=== PATIENT | female | born 1980 | race Caucasian/White ===

== ENCOUNTER 2019-05-07 19:01 | Emergency (ER) | payer OTHER ==
[2019-05-07 19:07] VITALS: BP 158/84; PULSE 78; RESP 18; TEMP 98.8
[2019-05-07] MEDS ORDERED: AMOXIC-POT CLAV 875MG STARTER 2 EACH TABLET PO STA (19:18)
[2019-05-07] MEDS ORDERED: KETOROLAC 60 MG/2 ML VIAL IM STA (19:19)
--- NOTE | 2019-05-07 19:20 | ED ---
General Adult HPI - General Chief complaint: Headache Stated complaint: Sinus infection Time Seen by Provider: 05/07/19 19:09 Source: patient Mode of arrival: ambulatory Limitations: no limitations - History of Present Illness Initial comments: 38 female presenting for facial pain 3-4 days, on-and-off headache symptomatic express for evaluation in ER. Patient states that she was sent from [facility] because she was stating when describing her sinus pressure on-and-off headache that she had some slight confusion today she states it was more of a fall with she states that she had no difficulty with speech, numbness tingling of the upper or lower extremitie, denies visual changes, seizure activity, neck pain, sudden onset of WASHBURN, worse WASHBURN of her life. Patient states she simply went there because she had what she felt a sinus infection. She states she was recently treated for an ear infection there are 2 weeks prior and has had upper respiratory symptoms are greater than 10 days. Patient denies any chest pain shortness of breath she states she has a mild cough. Denies fever. Patient states facial pressure increases wtih downward head movement or touching of the cheeks near nose. Patient states that she was told she had to come to the emergency department, and patient state she felt like if she didnt come her insurance would not pay for her med express visit. Patient denies , denies any other complaints. Upon arrival patient is very well appearing, no sign of distress. - Related Data Previous Rx's Medication Instructions Recorded Azithromycin [Zithromax Z-pack] 0 mg PO DIRECTED #1 pack 05/13/17 Amoxicillin/Potassium Clav 1 tab PO Q12HR 10 Days #20 tab 05/07/19 [Augmentin 875-125 Tablet] Fluconazole [Diflucan] 150 mg PO ONCE PRN 1 Days #1 tab 05/07/19 Allergies Allergy/AdvReac Type Severity Reaction Status Date / Time sulfamethoxazole Allergy Rash/Hives Verified 05/07/19 19:07 [From Bactrim] Review of Systems ROS Statement: Those systems with pertinent positive or pertinent negative responses have been documented in the HPI. ROS Other: All systems not noted in ROS Statement are negative. Past Medical History Past Medical History: Asthma, Deep Vein Thrombosis (DVT), GERD/Reflux, Musculoskeletal Disorder Additional Past Medical History / Comment(s): pinched nerve right leg currently, hx DVT right leg w/last History of Any Multi-Drug Resistant Organisms: None Reported Past Surgical History: Appendectomy, Section, Cholecystectomy, Orthopedic Surgery Additional Past Surgical History / Comment(s): arthroscopy bilat knees 2009, cholecyst 2002, appy 1987, c/s x 2 2000 and 2005 Past Anesthesia/Blood Transfusion Reactions: No Reported Reaction Past Psychological History: Anxiety Smoking Status: Current some day smoker Past Alcohol Use History: Occasional Past Drug Use History: None Reported - Past Family History Mother Family Medical History: CVA/TIA General Exam - General Exam Comments Initial Comments: General: The patient is awake and alert, in no distress, and does not appear acutely ill. Eye: +3 mm pupils are equal, round and reactive to light, extra-ocular movements are intact. No nystagmus. There is normal conjunctiva bilaterally. No signs of icterus. No photophobia Ears, nose, mouth and throat: There are moist mucous membranes and no oral lesions. Oropharynx was not erythematous there is no tonsillar enlargement exudates or lesions. Uvula midline. Tympanic membranes are not erythematous or is no effusions bulging or retraction. No tenderness to palpation of the mastoid. left EAC cerumen. No anterior cervical lymphadenopathy. Rhinorrhea, clear and bilateral nares. No tripoding, no drooling. Tenderness to palpation to the maxillary sinuses b/l. Neck: The neck is supple, there is no tenderness or JVD. No nuchal rigidity Cardiovascular: There is a regular rate and rhythm. No murmur, rub or gallop is appreciated. Respiratory: Lungs are clear to auscultation, respirations are non-labored, breath sounds are equal. No wheezes, stridor, rales, or rhonchi. No r etractions or abdominal breathing. Musculoskeletal: Normal ROM, no tenderness. Strength 5/5. Sensation intact. Radial pulses equal bilaterally 2+. Neurological: A&O x 3. CN II-XII intact, memory intact to immediately, intermediate and snf recall. Able to follow simple verbal. Able to name a common object (pen). High quality, labial (pa) and lingual (la) speech. Low quality posterior pharynx/larynx (ga) voice sounds. Able to express general knowledge (days in a week). No hemineglect or inattention noted. Finger agnosia (-) and spatially oriented (identified L index finger touched R shoulder with L index finger).Light touch and temperature sensation present over the face, chest, abdomen, back, UE bilaterally, and LE bilaterally. Able to localize point during point localization b/l and extinction. No visible bulk atrophy, hypertrophy, fasciculations, or myoclonus of the UE or LE b/l. Full PROM in UE and LE b/l. Bilateral muscle strength 5/5 for the following muscles: deltoid, biceps, triceps, brachioradialis, wrist extensors/flexor, hip flexor, hip abductors/adductors, hamstrings, quadriceps, feet dorsiflexors/plantar flexors. Finger to nose, finger to the examiners finger, and heel to edmonds coordinated and accurate b/l. Coordinated and even demonstration of hand flip, finger to thumb, and toe tap b/l. Gait is coordinated and even in stride with tandem, toe and heel walk. Maintains balance with monopedal stance. (-) Romberg. (-) pronator drift. No nuchal rigidity. Skin: Skin is warm and dry and no rashes or lesions are noted. No extremity edema Psychiatric: Cooperative Limitations: no limitations Course Vital Signs 05/07/19 19:04 Temperature 98.8 F Pulse Rate 78 Respiratory 18 Rate Blood Pressure 158/84 O2 Sat by Pulse 100 Oximetry Medical Decision Making - Medical Decision Making Very well-appearing 38yo female presenting for sinus pressure on and off headache. Patient has no focal neurological deficits she appears well refuses imaging studies today stating she simply came for a sinus infection. Patient has had on and off upper respiratory symptoms for 10 days as well as sinus pressure and facial pain 3-4 days. At this time feel antibiotics are indicated for sinus infection. Patient denies any other complaints she appears well be discharged with Augmentin. Patient states she frequently gets yeast infections with ABX and would like a prescription for diflucan. Case discussed in detail with my attending provider who is agreeable care plan at discharge at this time. Disposition Clinical Impression: Sinusitis Disposition: HOME SELF-CARE Condition: Good Instructions (If sedation given, give patient instructions): Sinusitis (ED) Additional Instructions: Please use medication as discussed. Please follow-up with family doctor in the next 2 days. Please return to emergency room if the symptoms increase or worsen or for any other concerns. Prescriptions: Amoxicillin/Potassium Clav [Augmentin 875-125 Tablet] 1 tab PO Q12HR 10 Days #20 tab Fluconazole [Diflucan] 150 mg PO ONCE PRN 1 Days #1 tab PRN Reason: Vaginal Irritation Is patient prescribed a controlled substance at d/c from ED?: No Referrals: Thalia Aiken MD [Primary Care Provider] - 1-2 days Time of Disposition: 19:22
== END 2019-05-07 19:40 | disposition home or self-care (01) ==
LOC: EC 19:01
DX: J32.9 Chronic sinusitis, unspecified (principal); R41.0 Disorientation, unspecified; F17.200 Nicotine dependence, unspecified, uncomplicated; Z88.2 Allergy status to sulfonamides; Z53.20 Procedure and treatment not carried out because of patient's decision for unspecified reasons
CPT/HCPCS: 99283; 96372; J1885

== ENCOUNTER → 2019-07-17 | Outpatient (CLI) | payer OTHER ==
--- NOTE | 2019-07-17 09:33 | US ---
EXAMINATION TYPE: US pelvis complete transvag DATE OF EXAM: 07/17/2019 COMPARISON: NONE CLINICAL HISTORY: N192.0 menorrhagia. Abnormal periods. TECHNIQUE: Transvaginal (TV) and Transabdominal (TA) . Transabdominal sonographic images of the pel vis were acquired. Transvaginal sonographic images were medically necessary to better assess the fol lowing anatomy: Date of LMP: 07/01/2019 EXAM MEASUREMENTS: Uterus: 11.2 x 4.6 x 6.1 cm Endometrial Stripe: .9 cm Right Ovary: 2.9 x 1.8 x 2.7 cm Left Ovary: 3.3 x 1.9 x 2.6 cm 1. Uterus: Retroflexed Nabothian cysts seen. 2. Endometrium: wnl 3. Right Ovary: 2.9 x 1.8 x 2.7 cm simple cyst, dominant follicle measures 1.4 x 1.3 x 1.7 cm. 4. Left Ovary: Follicles seen. 5. Bilateral Adnexa: Cystic area seen left adnexa 4.0 x 1.9 x 3.2cm. This is anechoic without learning and development intern al complexity. 6. Posterior cul-de-sac: wnl IMPRESSION: 1. Bilateral simple appearing ovarian cysts measuring up to 2.9 cm on the right and 4.0 cm on the lef t. 2. Endometrial thickness is within normal limits measuring 0.9 cm.
== END | disposition home or self-care (01) ==
LOC: RADUSWWP 08:03
PROVIDERS: ATTEND Obstetrics & Gynecology
DX: N83.202 Unspecified ovarian cyst, left side (principal); N83.201 Unspecified ovarian cyst, right side
CPT/HCPCS: 76830; 76856

== ENCOUNTER 2019-12-07 14:22 | Emergency (ER) | payer OTHER ==
[2019-12-07 14:29] VITALS: BP 151/96; PULSE 82; RESP 16; TEMP 98.2
--- NOTE | 2019-12-07 14:52 | ED ---
General Adult HPI - General Source: patient Mode of arrival: ambulatory Limitations: no limitations <Aleks Huerta Barrera - Last Filed: 12/07/19 15:07> <Xiomy Barreto Abimael - Last Filed: 12/11/19 16:19> - General Chief complaint: Recheck/Abnormal Lab/Rx Stated complaint: abn EKG sent by [facility] Time Seen by Provider: 12/07/19 14:30 - History of Present Illness Initial comments: Dictation was produced using Bullhorn dictation software. please excuse any grammatical, word or spelling errors. This patient was cared for during a federal and state declared state of emergency secondary to Covid 19 Chief Complaint: 39-year-old female presents from [facility] for left-sided numbness History of Present Illness: Patient is a 39-year-old female she has past medical history of obesity and -induced deep venous thrombosis of the leg. Patient states for the last week she's been experiencing left-sided numbness that would radiate from her left shoulder or left upper extremity and left torso. Patient states she would have several episodes of these a day that would last for hours. Patient think much of it. Today she went to the medics pressed to be evaluated. She had EKG and urine studies performed. She was told to come to the emergency department for further evaluation. Patient states that after these episodes of numbness her symptoms would follow-up with chest discomfort. She states that the pain is not severe. Does not rate to the back. She described it as a pressure. No associated diaphoresis. Patient also has been feeling generally weak over the last several days. Patient's last childbirth was in 2013.She denies any head pain or vision changes. States that she hears a whooshing sound in her left ear that seems to be associated with her heart rate. The ROS documented in this emergency department record has been reviewed and confirmed by me. Those systems with pertinent positive or negative responses have been documented in the HPI. All other systems are other negative and/or noncontributory. PHYSICAL EXAM: General Impression: Alert and oriented x3, not in acute distress HEENT: Normocephalic atraumatic, extra-ocular movements intact, pupils equal and reactive to light bilaterally, mucous membranes moist. Cardiovascular: Heart regular rate and rhythm Chest: Able to complete full sentences, no retractions, no tachypnea Abdomen: abdomen soft, non-tender, non-distended, no organomegaly Musculoskeletal: Pulses present and equal in all extremities, no peripheral edema Motor: no focal deficits noted Neurological: CN II-XII grossly intact, no focal motor or sensory deficits noted, no ataxia, no gait instability, abnormal 2 point discrimination on the left and this right side of the thorax. She complains of decreased sensation on the left side of the body compared to the right. This area of abnormal sensation encompasses the left abdomen, left back, left hip, left chest and her left upper extremity Skin: Intact with no visualized rashes Psych: Normal affect and mood ED course: 39-year-old female presents with episodic paresthesias and numbness to the left torso and left upper extremity. vital signs upon arrival are within acceptable limits. Patient's well-appearing at bedside. She appears to have isolated sensory deficits to the left arm and left thorax and left abdomen. She does not have any other neuro deficits. Patient also has a very strange and vague pain that usually accompanies her paresthesias. She is not experiencing any pain at this moment. Patient care is signed out to Dr. Barreto. (Aleks Huerta) - Related Data Previous Rx's Medication Instructions Recorded Azithromycin [Zithromax Z-pack] 0 mg PO DIRECTED #1 pack 05/13/17 Amoxicillin/Potassium Clav 1 tab PO Q12HR 10 Days #20 tab 05/07/19 [Augmentin 875-125 Tablet] Fluconazole [Diflucan] 150 mg PO ONCE PRN 1 Days #1 tab 05/07/19 Cyclobenzaprine [Flexeril] 10 mg PO TID PRN #15 tab 12/07/19 predniSONE [Deltasone] 20 mg PO BID #10 tab 12/07/19 Allergies Allergy/AdvReac Type Severity Reaction Status Date / Time sulfamethoxazole Allergy Rash/Hives Verified 12/07/19 14:29 [From Bactrim] Review of Systems ROS Other: All systems not noted in ROS Statement are negative. <Aleks Huerta - Last Filed: 12/07/19 15:07> ROS Other: All systems not noted in ROS Statement are negative. <Xiomy Barreto - Last Filed: 12/11/19 16:19> ROS Statement: Those systems with pertinent positive or pertinent negative responses have been documented in the HPI. Past Medical History Past Medical History: Asthma, Deep Vein Thrombosis (DVT), GERD/Reflux, Musculoskeletal Disorder Additional Past Medical History / Comment(s): pinched nerve right leg currently, hx DVT right leg w/last History of Any Multi-Drug Resistant Organisms: None Reported Past Surgical History: Appendectomy, Section, Cholecystectomy, Orthopedic Surgery Additional Past Surgical History / Comment(s): arthroscopy bilat knees 2009, cholecyst 2002, appy 1987, c/s x 2 2000 and 2005 Past Anesthesia/Blood Transfusion Reactions: No Reported Reaction Past Psychological History: Anxiety Smoking Status: Current some day smoker Past Alcohol Use History: Occasional Past Drug Use History: None Reported - Past Family History Mother Family Medical History: CVA/TIA <Aleks Huerta - Last Filed: 12/07/19 15:07> General Exam Limitations: no limitations <Aleks Huerta - Last Filed: 12/07/19 15:07> Course Vital Signs 12/07/19 14:25 Temperature 98.2 F Pulse Rate 82 Respiratory 16 Rate Blood Pressure 151/96 O2 Sat by Pulse 98 Oximetry Medical Decision Making - Lab Data Result diagrams: 12/07/19 15:20 12/07/19 15:20 <Xiomy Barreto - Last Filed: 12/11/19 16:19> - Medical Decision Making The patient was signed out to me by Dr. Huerta. I evaluated the patient myself. She reports to most of her discomfort stemming from the left shoulder into the left arm. States it feels numb and tingly. She does admit to some mild neck discomfort. Review the patient's laboratory studies reveal hemoglobin 10.7. Urinalysis is positive for large blood and greater than 182 red blood cells. Patient reports she is on her menstrual cycle. CT of the patient's brain as well as chest x-ray are negative for any acute process. Patient remains with an NIH of 0. I did discuss diagnosis, differential and treatment options. The patient will be treated with muscle relaxers and steroid pack for possible cervical radiculopathy. Instructed the patient that she will need further workup if her symptoms do not improve. Patient understood this. She does have a primary care physician however is requesting a new one. She is provided information for Dr. Enamorado's office. She is to call tomorrow to make. Return to the emergency room for any new or worsening symptoms. Patient was in agreement with the treatment plan she was discharged home in stable condition (Xiomy Barreto) - Lab Data Lab Results 12/07/19 12/07/19 12/07/19 Range/Units 15:00 15:07 15:20 WBC 10.3 (3.8-10.6) k/uL RBC 4.71 (3.80-5.40) m/uL Hgb 10.7 L (11.4-16.0) gm/dL Hct 35.3 (34.0-46.0) % MCV 75.0 L (80.0-100.0) fL MCH 22.8 L (25.0-35.0) pg MCHC 30.3 L (31.0-37.0) g/dL RDW 17.2 H (11.5-15.5) % Plt Count 282 (150-450) k/uL Neutrophils % 80 % Lymphocytes % 12 % Monocytes % 4 % Eosinophils % 3 % Basophils % 0 % Neutrophils # 8.3 H (1.3-7.7) k/uL Lymphocytes # 1.3 (1.0-4.8) k/uL Monocytes # 0.4 (0-1.0) k/uL Eosinophils # 0.3 (0-0.7) k/uL Basophils # 0.0 (0-0.2) k/uL Hypochromasia Marked Anisocytosis Slight Microcytosis Slight PT (9.0-12.0) sec INR (<1.2) APTT (22.0-30.0) sec Sodium (137-145) mmol/L Potassium (3.5-5.1) mmol/L Chloride (98-107) mmol/L Carbon Dioxide (22-30) mmol/L Anion Gap mmol/L BUN (7-17) mg/dL Creatinine (0.52-1.04) mg/dL Est GFR (CKD-EPI)AfAm (>60 ml/min/1.73 sqM) Est GFR (CKD-EPI)NonAf (>60 ml/min/1.73 sqM) Glucose (74-99) mg/dL Calcium (8.4-10.2) mg/dL Ionized Calcium Bassem (4.5-5.3) mg/dL Phosphorus (2.5-4.5) mg/dL Magnesium (1.6-2.3) mg/dL Urine Color Red Urine Appearance Turbid H (Clear) Urine pH 5.5 (5.0-8.0) Ur Specific [place] 1.020 (1.001-1.035) Urine Protein 1+ H (Negative) Urine Glucose (UA) Negative (Negative) Urine Ketones Negative (Negative) Urine Blood Large H (Negative) Urine Nitrite Negative (Negative) Urine Bilirubin Negative (Negative) Urine Urobilinogen <2.0 (<2.0) mg/dL Ur Leukocyte Esterase Moderate H (Negative) Urine RBC >182 H (0-5) /hpf Urine WBC 56 H (0-5) /hpf Urine HCG, Qual Not Detected (Not Detectd) 12/07/19 12/07/19 Range/Units 15:20 15:20 WBC (3.8-10.6) k/uL RBC (3.80-5.40) m/uL Hgb (11.4-16.0) gm/dL Hct (34.0-46.0) % MCV (80.0-100.0) fL MCH (25.0-35.0) pg MCHC (31.0-37.0) g/dL RDW (11.5-15.5) % Plt Count (150-450) k/uL Neutrophils % % Lymphocytes % % Monocytes % % Eosinophils % % Basophils % % Neutrophils # (1.3-7.7) k/uL Lymphocytes # (1.0-4.8) k/uL Monocytes # (0-1.0) k/uL Eosinophils # (0-0.7) k/uL Basophils # (0-0.2) k/uL Hypochromasia Anisocytosis Microcytosis PT 9.4 (9.0-12.0) sec INR 0.9 (<1.2) APTT 19.7 L (22.0-30.0) sec Sodium 136 L (137-145) mmol/L Potassium 3.9 (3.5-5.1) mmol/L Chloride 107 (98-107) mmol/L Carbon Dioxide 22 (22-30) mmol/L Anion Gap 7 mmol/L BUN 16 (7-17) mg/dL Creatinine 0.67 (0.52-1.04) mg/dL Est GFR (CKD-EPI)AfAm >90 (>60 ml/min/1.73 sqM) Est GFR (CKD-EPI)NonAf >90 (>60 ml/min/1.73 sqM) Glucose 79 (74-99) mg/dL Calcium 8.6 (8.4-10.2) mg/dL Ionized Calcium Bassem 5.1 (4.5-5.3) mg/dL Phosphorus 3.1 (2.5-4.5) mg/dL Magnesium 1.8 (1.6-2.3) mg/dL Urine Color Urine Appearance (Clear) Urine pH (5.0-8.0) Ur Specific [place] (1.001-1.035) Urine Protein (Negative) Urine Glucose (UA) (Negative) Urine Ketones (Negative) Urine Blood (Negative) Urine Nitrite (Negative) Urine Bilirubin (Negative) Urine Urobilinogen (<2.0) mg/dL Ur Leukocyte Esterase (Negative) Urine RBC (0-5) /hpf Urine WBC (0-5) /hpf Urine HCG, Qual (Not Detectd) Disposition <Aleks Huerta - Last Filed: 12/07/19 15:07> Is patient prescribed a controlled substance at d/c from ED?: No Time of Disposition: 16:28 <Xiomy Barreto - Last Filed: 12/11/19 16:19> Clinical Impression: Left arm pain Disposition: HOME SELF-CARE Condition: Stable Instructions (If sedation given, give patient instructions): Arm Pain (ED) Additional Instructions: Please follow-up with your primary care doctor in regards to your symptoms. Return to the emergency room for any new or worsening symptoms. You may need further imaging studies Prescriptions: predniSONE [Deltasone] 20 mg PO BID #10 tab Cyclobenzaprine [Flexeril] 10 mg PO TID PRN #15 tab PRN Reason: Muscle Spasm Referrals: Steven Vance MD [Primary Care Provider] - 1-2 days Jahaira Greene MD [STAFF PHYSICIAN] - 1-2 days
[2019-12-07 15:31] LABS: Appearance,Urine Turbid (Clear); Bilirubin,Urine Negative (Negative); Blood,Urine Large (Negative); Color,Urine Red; Glucose,Urine (UA) Negative (Negative); Ketones,Urine Negative (Negative); Leukocyte Esterase,Urine Moderate (Negative); Nitrite,Urine Negative (Negative); PH, Urine 5.5 (5.0-8.0); Protein,Urine 1+ (Negative); RBC,Urine >182 /hpf (0-5); Urobilinogen,Urine <2.0 mg/dL (<2.0); WBC,Urine 56 /hpf (0-5)
[2019-12-07 15:35] LABS: Ionized Calcium 5.1 mg/dL (4.5-5.3)
[2019-12-07 15:41] LABS: Anisocytosis Slight; Basophils % (A) 0 %; Eosinophils # (A) 0.3 k/uL (0-0.7); Eosinophils % (A) 3 %; HCT 35.3 % (34.0-46.0); HGB 10.7 gm/dL (11.4-16.0); Hypochromasia Marked; Lymphocytes # (A) 1.3 k/uL (1.0-4.8); Lymphocytes % (A) 12 %; MCH 22.8 pg (25.0-35.0); MCHC 30.3 g/dL (31.0-37.0); Mean Platelet Volume 7.4; Microcytosis Slight; Monocytes # (A) 0.4 k/uL (0-1.0); Monocytes % (A) 4 %; Neutrophils # (A) 8.3 k/uL (1.3-7.7); Neutrophils % (A) 80 %; Platelet Count 282 k/uL (150-450); RBC 4.71 m/uL (3.80-5.40); RDW 17.2 % (11.5-15.5); WBC 10.3 k/uL (3.8-10.6)
[2019-12-07 15:42] LABS: African American GFR (CKD) >90 (>60 ml/min/1.73 sqM); Anion Gap 7 mmol/L; Blood Urea Nitrogen 16 mg/dL (7-17); Calcium 8.6 mg/dL (8.4-10.2); Carbon Dioxide 22 mmol/L (22-30); Chloride 107 mmol/L (98-107); Glucose 79 mg/dL (74-99); Magnesium 1.8 mg/dL (1.6-2.3); Non-African American GFR(CKD) >90 (>60 ml/min/1.73 sqM); Phosphorus 3.1 mg/dL (2.5-4.5); Potassium 3.9 mmol/L (3.5-5.1); Sodium 136 mmol/L (137-145)
--- NOTE | 2019-12-07 15:52 | CT ---
EXAMINATION TYPE: CT brain wo con DATE OF EXAM: 12/07/2019 COMPARISON: None HISTORY: Left sided tingling and overall weakness. CT DLP: 1062.4 mGycm Automated exposure control for dose reduction was used. Multiple axial sections were obtained of the brain without contrast. Ventricles and sulci appear normal. There is no mass effect nor midline shift. There is no sign of in tracranial hemorrhage. Calvarium is intact. IMPRESSION: Negative unenhanced head CT scan.
--- NOTE | 2019-12-07 15:54 | XR ---
EXAMINATION TYPE: XR chest 1V portable DATE OF EXAM: 12/07/2019 COMPARISON: 06/10/2013 HISTORY: Chest pain TECHNIQUE: FINDINGS: Heart and mediastinum are normal. Lungs are clear of infiltrate. There is no heart failure. There are chest leads. Bony thorax is intact. IMPRESSION: No active cardiopulmonary disease. No change.
[2019-12-07 16:00] LABS: INR 0.9 (<1.2); Partial Thromboplastin Time 19.7 sec (22.0-30.0); Prothrombin Time 9.4 sec (9.0-12.0)
[2019-12-07] MEDS ORDERED: KETOROLAC 30 MG/ML 1 ML VIAL IVP STA (16:24)
[2019-12-07] MEDS ORDERED: CYCLOBENZAPRINE 10MG STARTER 3 TAB BTL PO STA (16:24)
[2019-12-07] MEDS ORDERED: predniSONE 20 MG TAB PO STA (16:25)
== END 2019-12-07 16:54 | disposition home or self-care (01) ==
LOC: EC 14:22
DX: M79.602 Pain in left arm (principal); R20.0 Anesthesia of skin; R20.2 Paresthesia of skin; M54.2 Cervicalgia; J45.909 Unspecified asthma, uncomplicated; F17.200 Nicotine dependence, unspecified, uncomplicated; Z79.52 Long term (current) use of systemic steroids; Z88.2 Allergy status to sulfonamides
CPT/HCPCS: 36415; 93005; 80048; 82330; 83735; 84100; 85025; 85610; 85730; 81001; 81025; 87086; 71045; 70450; 99284; 96374; J1885; J7512

== ENCOUNTER 2020-04-01 08:54 | Day surgery (SDC) | payer OTHER ==
[2020-03-29 15:12] VITALS: BMI 54.9
--- NOTE | 2020-03-31 16:37 | P.HPOB ---
History of Present Illness H&P Date: 03/31/20 Chief Complaint: Menorrhagia Patient is a 39-year-old female with heavy vaginal bleeding. Patient reports that she has heavy vaginal bleeding and passes call for size clots that are painful she is a 4 cm cystic area in her ultrasound that needs a reevaluation following D&C. We had previously discussed options including control versus progestin IUD her progestins and she would prefer to have a D&C with hysteroscopy to verify no other pathology prior to making final decision on treatment options. Past Medical History Past Medical History: Asthma, Deep Vein Thrombosis (DVT), GERD/Reflux Additional Past Medical History / Comment(s): Current pinched nerve in right leg. Hx DVT in right leg with 2nd . Migraines. Tingling, burning and heaviness, usually at night, in bilateral legs and left arm from unknown cause. History of Any Multi-Drug Resistant Organisms: None Reported Past Surgical History: Appendectomy, Section, Cholecystectomy, Orthopedic Surgery Additional Past Surgical History / Comment(s): Arthroscopy bilateral knees, Section X3. Past Anesthesia/Blood Transfusion Reactions: No Reported Reaction Past Psychological History: Anxiety, Depression Additional Psychological History / Comment(s): Hx of anxiety and depression since childhood, prevoiusly on medications, but none currently. Smoking Status: Current every day smoker Past Alcohol Use History: None Reported Additional Past Alcohol Use History / Comment(s): Has been smoking for 3 yrs, 1/2 PPD. Past Drug Use History: None Reported - Past Family History Mother Family Medical History: CVA/TIA Additional Family Medical History / Comment(s): "Breast tumors, blood clots that caused multiple strokes." Father Family Medical History: Unable to Obtain Additional Family Medical History / Comment(s): Pt unaware of father's health history. Medications and Allergies Home Medications Medication Instructions Recorded Confirmed Type Gabapentin [Neurontin] 300 mg PO HS PRN 03/29/20 03/29/20 History Ibuprofen [Motrin] 800 mg PO Q8H PRN 03/29/20 03/29/20 History Allergies Allergy/AdvReac Type Severity Reaction Status Date / Time sulfamethoxazole Allergy Rash/Hives Verified 03/29/20 14:55 [From Bactrim] Surgical Tape Allergy Rash/Hives Uncoded 03/29/20 14:55 Exam Osteopathic Statement: *. No significant issues noted on an osteopathic structural exam other than those noted in the History and Physical/Consult. - OBG Physical Exam Breast: both: normal (no masses) Abdomen: bowel sounds normal, no diffuse tenderness, no bruit present, no guarding noted, no hepatomegaly, no splenomegaly, no mass Vulva: both: normal Vagina: normal moisture, no discharge Cervix: no lesion, no discharge Uterus: normal size, normal contour Adnexa: both: normal Anus/Rectum: normal perianal skin, no rectal mass, no hemorrhoids, heme negative
[~2020-04-01 08:54] MED LIST: DEXAMETHASONE SOD PHOSPHATE 10 MG/ML 1 ML VIAL IV ONE; HYDROmorphone 0.5 MG/0.5 ML SYRINGE IVP PRN; LACTATED RINGERS 1,000 ML IV SCH; ONDANSETRON 4 MG/2 ML VIAL IVP ONE; Pre Op ABX Message 1 EACH MISC MISCELLANE ONE
[2020-04-01 09:21] VITALS: RESP 16
[2020-04-01] MEDS ORDERED: KETOROLAC 30 MG/ML 1 ML VIAL ONE (09:35)
[2020-04-01] MEDS ORDERED: SUCCINYLCHOLINE CHLORIDE VIAL 200 MG/10 ML VIAL IV ONE (09:35)
[2020-04-01] MEDS ORDERED: MIDAZOLAM 2 MG/2 ML VIAL ONE (09:35)
[2020-04-01] MEDS ORDERED: PROPOFOL 10 MG/ML 20 ML VIAL IV ONE (09:35)
[2020-04-01] MEDS ORDERED: LIDOCAINE 1% INJ 10MG/ML (20 ML MDV) ONE (09:35)
[2020-04-01] MEDS ORDERED: fentaNYL (PF) 50 MCG/ML 2 ML AMP ONE (09:35)
--- NOTE | 2020-04-01 10:11 | P.OP ---
Date of Procedure: 04/01/20 Preoperative Diagnosis: Menorrhagia Postoperative Diagnosis: Same Procedure(s) Performed: D&C with attempted hysteroscopy Anesthesia: NGOC Surgeon: Ford George Estimated Blood Loss (ml): 8 Pathology: other (Uterine curettings) Condition: stable Disposition: same day Operative Findings: Due to sharply anteverted uterus and patient's body habitus was unable to visualize well with hysteroscope Description of Procedure: Patient states the operating suite where a general anesthetic was found be adequate. She was prepped and draped in the normal sterile fashion placed in dorsal lithotomy position. Initially a speculum was inserted in vagina and ante rior lip of cervix identified and grasped with single-tooth tenaculum. Uterus was then dilated and sounded to 10 cm. Camera was attempted to replace, but due to sharp anteversion of her uterus and with her body habitus the camera was unable to to go sharply enough to visualize well into the uterine cavity. Therefore camera was removed and sharp curettings of the endometrium were obtained. All this tissues collected placed on [facility] pathology for evaluation. Once this was completed all incidents removed. Sponge, lap, needle counts were all correct 2. Patient was then taken to the recovery room in stable and satisfactory condition. Plan - Discharge Summary Discharge Rx Participant: No New Discharge Prescriptions: New Ibuprofen [Motrin] 600 mg PO Q6HR PRN #30 tab PRN Reason: Pain No Action Ibuprofen [Motrin] 800 mg PO Q8H PRN PRN Reason: Migraine Headache or Cramping Gabapentin [Neurontin] 300 mg PO HS PRN PRN Reason: Pain Fluticasone Nasal [place] [Flonase Nasal [place]] 2 spray NASAL BID Albuterol Inhaler [Ventolin Hfa Inhaler] 1 puff INHALATION RT-TID PRN PRN Reason: Shortness Of Breath Discharge Medication List Gabapentin [Neurontin] 300 mg PO HS PRN 03/29/20 [History] Ibuprofen [Motrin] 800 mg PO Q8H PRN 03/29/20 [History] Albuterol Inhaler [Ventolin Hfa Inhaler] 1 puff INHALATION RT-TID PRN 04/01/20 [History] Fluticasone Nasal [place] [Flonase Nasal [place]] 2 spray NASAL BID 04/01/20 [History] Ibuprofen [Motrin] 600 mg PO Q6HR PRN #30 tab 04/01/20 [Rx] Follow up Appointment(s)/Referral(s): Ford George DO [Doctor of Osteopathic Medicine] - 1 Week Activity/Diet/Wound Care/Special Instructions: Lifting, limit stairs and driving, and pelvic rest. If any high temperatures, heavy bleeding, or severe pain call my office Discharge Disposition: HOME SELF-CARE
[2020-04-01 10:22] VITALS: TEMP 99.7
[2020-04-01 11:50] VITALS: BP 107/76; PULSE 83
[2020-04-01] MEDS ORDERED: IBUPROFEN 200 MG TAB PO ONE (12:11)
== END 2020-04-01 13:04 | disposition home or self-care (01) ==
LOC: OR 08:54
PROVIDERS: ATTEND Obstetrics & Gynecology
DX: N92.0 Excessive and frequent menstruation with regular cycle (principal); N85.4 Malposition of uterus; J45.909 Unspecified asthma, uncomplicated; Z86.718 Personal history of other venous thrombosis and embolism; K21.9 Gastro-esophageal reflux disease without esophagitis; G58.8 Other specified mononeuropathies; R20.2 Paresthesia of skin; Z90.49 Acquired absence of other specified parts of digestive tract; Z98.891 History of uterine scar from previous surgery; F41.9 Anxiety disorder, unspecified; F32.9 Major depressive disorder, single episode, unspecified; F17.210 Nicotine dependence, cigarettes, uncomplicated; Z80.3 Family history of malignant neoplasm of breast; Z82.3 Family history of stroke; Z98.890 Other specified postprocedural states; E66.01 Morbid (severe) obesity due to excess calories; Z68.43 Body mass index [BMI] 50.0-59.9, adult; Z88.2 Allergy status to sulfonamides; Z91.09 Other allergy status, other than to drugs and biological substances; Z79.899 Other long term (current) drug therapy
CPT/HCPCS: 58120; 81025; 88305; J2250; J0330; J1100; J2405; J2001; J3010; J1885; J2704

== ENCOUNTER 2020-07-20 18:11 | Inpatient (IN) | payer MEDICAID, OTHER ==
--- NOTE | 2020-07-20 21:28 | ED ---
Psych HPI - General Chief Complaint: Psychiatric Symptoms Stated Complaint: EPS eval Time Seen by Provider: 07/20/20 18:35 Source: patient, family Mode of arrival: ambulatory - History of Present Illness Initial Comments: 's is a 40-year-old failed a history of depression and Pristiq presents emergency department for worsening depression and suicidal ideations. She states that over the last few weeks she's been having worsening depression and thoughts of suicide. She states that she plans to take her life by overdosing on her medications however will not elaborate any further. She states that is nothing in particular that is caused her depression to worsen just life in general. She states that she has not had any homicidal ideation. No visual or auditory hallucinations. She denies any physical complaints. - Related Data Home Medications Medication Instructions Recorded Confirmed Gabapentin [Neurontin] 300 mg PO HS PRN 03/29/20 07/20/20 Albuterol Inhaler [Ventolin Hfa 1 puff INHALATION RT-QID PRN 04/01/20 07/20/20 Inhaler] Fluticasone Nasal [place] [Flonase 2 spray NASAL BID PRN 04/01/20 07/20/20 Nasal [place]] Baclofen [Lioresal] 20 mg PO DAILY PRN 07/20/20 07/20/20 Budesonide [Pulmicort Flexhaler] 2 puff INHALATION RT-BID 07/20/20 07/20/20 Budesonide/Formoterol Fumarate 2 puff INHALATION RT-BID 07/20/20 07/20/20 [Symbicort 160-4.5 Mcg Inhaler] Cetirizine HCl [Zyrtec] 10 mg PO DAILY 07/20/20 07/20/20 Desvenlafaxine Succinate [Pristiq] 100 mg PO DAILY 07/20/20 07/20/20 Ferrous Sulfate [Feosol] 325 mg PO BID 07/20/20 07/20/20 Mometasone Inhalr 220 Mcg/Puff 1 puff INHALATION RT-BID 07/20/20 07/20/20 [Asmanex] Montelukast Sodium [Singulair] 10 mg PO HS 07/20/20 07/20/20 Varenicline Tartrate [Chantix 0.5 mg PO DIRECTED 07/20/20 07/20/20 Starter Pack] Previous Rx's Medication Instructions Recorded Ibuprofen [Motrin] 600 mg PO Q6HR PRN #30 tab 04/01/20 Allergies Allergy/AdvReac Type Severity Reaction Status Date / Time sulfamethoxazole Allergy Rash/Hives Verified 07/20/20 22:33 [From Bactrim] Surgical Tape Allergy Rash/Hives Uncoded 04/01/20 09:10 Review of Systems ROS Statement: Those systems with pertinent positive or pertinent negative responses have been documented in the HPI. ROS Other: All systems not noted in ROS Statement are negative. Past Medical History Past Medical History: Asthma, Deep Vein Thrombosis (DVT), GERD/Reflux Additional Past Medical History / Comment(s): Current pinched nerve in right leg. Hx DVT in right leg with 2nd . Migraines. Tingling, burning and heaviness, usually at night, in bilateral legs and left arm from unknown cause. History of Any Multi-Drug Resistant Organisms: None Reported Past Surgical History: Appendectomy, Section, Cholecystectomy, Orthopedic Surgery Additional Past Surgical History / Comment(s): Arthroscopy bilateral knees, Section X3. Past Anesthesia/Blood Transfusion Reactions: No Reported Reaction Past Psychological History: Anxiety, Depression Smoking Status: Current every day smoker Past Alcohol Use History: None Reported Past Drug Use History: None Reported - Past Family History Mother Family Medical History: CVA/TIA Additional Family Medical History / Comment(s): "Breast tumors, blood clots that caused multiple strokes." Father Family Medical History: Unable to Obtain Additional Family Medical History / Comment(s): Pt unaware of father's health history. General Exam - General Exam Comments Initial Comments: Constitutional: [Awake alert] [Appears comfortable] Head: [Normocephalic atraumatic] Eyes: [no conjunctival injection] [No scleral icterus] [EOMI] Neck: [No JVD] [Supple] Heart: [Regular rate rhythm] [normal S1-S2] [no murmurs] Lungs: [Clear to auscultation bilaterally] [No wheezing] [No rales] Abdomen: [Soft] [nondistended] [nontender] Extremities: [Non edematous] [DP pulses intact] [Radial pulses intact] Neuro: [A&Ox3] [No focal neurologic deficits] Psych: Depressed and suicidal with a plan Limitations: no limitations Course Vital Signs 07/20/20 07/20/20 18:25 18:54 Temperature 98.8 F Pulse Rate 92 123 H Respiratory 18 16 Rate Blood Pressure 113/78 110/75 O2 Sat by Pulse 100 96 Oximetry Medical Decision Making - Medical Decision Making Physical 40-year-old who came in for worsening depression and suicidal ideation. The patient was evaluated by EPS who deemed that she required admission. The patient is stable for transfer to psychiatric floor at this time. Further orders per the psychiatry team Disposition Clinical Impression: Depression, Suicidal ideation Disposition: TRANSFER TO PSYCH HOSP/UNIT Condition: Stable Referrals: Hemant Valdovinos MD [Primary Care Provider] - 1-2 days
[2020-07-20] MEDS ORDERED: ONDANSETRON ODT 4 MG TAB PO STA (23:06)
[2020-07-20] MEDS ORDERED: ALBUTEROL HFA INHALER INHALATION STA (23:06)
[2020-07-20 23:41] LABS: Amphetamine Screen,Urine Not Detected (NotDetected); Barbiturate Screen,Urine Not Detected (NotDetected); Benzodiazepines Screen,Urine Not Detected (NotDetected); Cocaine Screen,Urine Not Detected (NotDetected); Methadone Screen, Urine Not Detected (NotDetected); Opiate Screen,Urine Not Detected (NotDetected); Oxycodone Screen, Urine Not Detected (NotDetected); Phencyclidine Screen,Urine Not Detected (NotDetected); Tricyclic Antidepressant,Urine Not Detected (NotDetected); Urn Cannabinoid Scrn Not Detected (NotDetected)
[2020-07-21] MEDS ORDERED: GABAPENTIN 300 MG CAP PO PRN (00:01)
[2020-07-21] MEDS ORDERED: MAGNESIUM HYDROXIDE 2,400 MG/10 ML CUP PO PRN (00:02)
[2020-07-21] MEDS ORDERED: LORazepam 1 MG TAB PO PRN (00:02)
[2020-07-21] MEDS ORDERED: MAG HYDROX/AL HYDROX/SIMETH 30 ML CUP PO PRN (00:02)
[2020-07-21] MEDS ORDERED: LORazepam 2 MG/ML INJ IM PRN (00:04)
[2020-07-21] MEDS ORDERED: haloperidoL 5 MG TAB PO PRN (00:04)
[2020-07-21] MEDS ORDERED: HALOPERIDOL LACTATE 5 MG/ML 1 ML VIAL IM PRN (00:04)
[2020-07-21] MEDS: VARENICLINE 1 MG TAB PO SCH ×3 (01:13→20:54)
[2020-07-21] MEDS ORDERED: BUDESONIDE 180 MCG INHALATION SCH (08:00)
[2020-07-21] MEDS: LORATADINE 10 MG TAB PO SCH (08:32)
[2020-07-21] MEDS: FERROUS SULFATE 325 MG TAB PO SCH ×2 (08:32→20:57)
[2020-07-21] MEDS: SYMBICORT 160-4.5 MCG INHALER (MHU) INHALATION SCH ×2 (08:32→20:55)
[2020-07-21] MEDS: ALBUTEROL INHALER 60 PUFF/8 GM INHALER (MHU) INHALATION PRN (09:47)
[2020-07-21] MEDS: ACETAMINOPHEN TAB 325 MG TAB PO PRN (09:47)
[2020-07-21] MEDS ORDERED: IBUPROFEN 600 MG TAB PO PRN (10:28)
[2020-07-21] MEDS: DULoxetine HCL 30 MG CAPSULE.DR PO SCH (11:59)
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
[2020-07-21] MEDS: FLUTICASONE 110 MCG INHALER (MHU) INHALATION SCH (20:54)
[2020-07-21] MEDS: MONTELUKAST 10 MG TAB PO SCH (20:56)
[2020-07-21] MEDS: traZODone HCL 50 MG TAB PO SCH (20:57)
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
[2020-07-22 06:52] VITALS: RESP 16
[2020-07-22] MEDS: VARENICLINE 1 MG TAB PO SCH ×2 (08:31→20:43)
[2020-07-22] MEDS: FERROUS SULFATE 325 MG TAB PO SCH ×2 (08:32→20:43)
[2020-07-22] MEDS: FLUTICASONE 110 MCG INHALER (MHU) INHALATION SCH ×2 (08:32→21:51)
[2020-07-22] MEDS: LORATADINE 10 MG TAB PO SCH (08:32)
[2020-07-22] MEDS: SYMBICORT 160-4.5 MCG INHALER (MHU) INHALATION SCH ×2 (08:32→20:45)
[2020-07-22] MEDS: DULoxetine HCL 30 MG CAPSULE.DR PO SCH (08:32)
--- NOTE | 2020-07-22 09:49 | P.PN ---
Progress Note - Text Progress Note Date: 07/22/20 Interval History: Patient was seen lying in her bed this morning and was directable and agreeable to speak with poem writer in the office. Patient continues to appear to have a constricted affect. She was attending 12 cooperative with the interview. She continues to have poverty of content and speech. She claims that she feels "no improvement" in her mood however did state that she was able to sleep better last night. She states that she did not have any restless leg symptoms and slept approximately 8 hours. She states that she wants to "feel numb" which she described as the goal for her medications. She denied any anxiety today. She states that she did go to 1 group yesterday and is looking forward to going to another group today. She claims her appetite is fair. At this time patient denies any suicidal or homical ideations, intent or plan. Patient denies any auditory, visual hallucinations and denies any paranoia or delusions. Patient denies any side effects from the medications and has been compliant with meds. Mental Status Exam: General Appearance: Patient appears to be overweight, stated age is alert, difficult to redirect, flat affect. Patient appears to have poor hygiene and grooming. Behavior: Patient is seated without any agitated behavior. Constricted Speech: Patient's speech is fluent and nonpressured. Monotone. Mood/Affect: Patient reports their mood is "the same", affect is congruent and constricted. Suicidality/Homicidality: Patient denies having any homicidal ideation intent or plan. sHe admits to passive suicidal thoughts however no intent or plan. Perceptions: Patient denies any visual hallucinations and denies any auditory hallucinations Though content/process: There is no evidence of any delusional thought content and thought process is linear. Poverty of content. Memory and concentration: AOX3, grossly intact for the purposes of this session Judgment and insight: poor, improving mildly Assessment Major depressive disorder, recurrent, severe without psychotic features Anxiety disorder unspecified Nicotine dependence Plan: -Patient continues to meet criteria for inpatient psychiatric admission for symptom stabilization and safety. Patient has signed adult voluntary form and medication consent and was placed in patient's chart. -Medications: Increase Cymbalta to 60 mg daily for mood/anxiety. Continue trazodone 50 mg daily at bedtime for insomnia/mood. Continue with Requip 0.25 mg daily at bedtime for restless leg symptoms. -When necessary Ativan and Haldol for agitation/aggression. -NRT - nicotine patch + verenicline -SW on board for discharge planning. Encouraged the patient to participate in milieu.
[2020-07-22 14:34] VITALS: BMI 50.6
[2020-07-22] MEDS: ALBUTEROL INHALER 60 PUFF/8 GM INHALER (MHU) INHALATION PRN (16:22)
[2020-07-22] MEDS: traZODone HCL 50 MG TAB PO SCH (20:43)
[2020-07-22] MEDS: MONTELUKAST 10 MG TAB PO SCH (20:43)
[2020-07-23] MEDS: VARENICLINE 1 MG TAB PO SCH ×2 (09:00→20:23)
[2020-07-23] MEDS: SYMBICORT 160-4.5 MCG INHALER (MHU) INHALATION SCH ×2 (09:02→20:22)
[2020-07-23] MEDS: LORATADINE 10 MG TAB PO SCH (09:05)
[2020-07-23] MEDS: FERROUS SULFATE 325 MG TAB PO SCH ×2 (09:05→20:25)
[2020-07-23] MEDS: ACETAMINOPHEN TAB 325 MG TAB PO PRN (09:05)
[2020-07-23] MEDS: DULoxetine HCL 60 MG CAPSULE.DR PO SCH (09:05)
[2020-07-23] MEDS: FLUTICASONE 110 MCG INHALER (MHU) INHALATION SCH ×2 (10:18→20:25)
--- NOTE | 2020-07-23 13:31 | P.PN ---
Progress Note - Text Progress Note Date: 07/23/20 Interval History: Patient was seen after lunch this afternoon and was directable and agreeable to speak with comic writer in the office. Patient appeared to be more cooperative with comic writer today however continues to be soft spoken. She states that she is feeling "a little bit better" with regards her depression and anxiety. She states that she has been talking to her daughter over the phone and also spoke about potentially closing on her house which she is excited for. She states that she is trying to go to more groups and participate as best as she can. She states that the suicidal thoughts have been gradually improving however she still feels suicidal today. She denied any intent or plan. She is demonstrating mild improvement in her insight and judgment today. She claims her appetite is fair. At this time patient denies any homical ideations, intent or plan. Patient denies any auditory, visual hallucinations and denies any paranoia or delusions. Patient denies any side effects from the medications and has been compliant with meds. Mental Status Exam: General Appearance: Patient appears to be overweight, stated age is alert, more directable, appropriate. Patient appears to have improving hygiene and grooming. Behavior: Patient is seated without any agitated behavior. Constricted Speech: Patient's speech is fluent and nonpressured. Monotone. Mood/Affect: Patient reports their mood is "a bit better", affect is congruent and constricted. Suicidality/Homicidality: Patient denies having any homicidal ideation intent or plan. sHe admits to passive suicidal thoughts however no intent or plan. Perceptions: Patient denies any visual hallucinations and denies any auditory hallucinations Though content/process: There is no evidence of any delusional thought content and thought process is linear. Memory and concentration: AOX3, grossly intact for the purposes of this session Judgment and insight: poor, improving mildly Assessment Major depressive disorder, recurrent, severe without psychotic features Anxiety disorder unspecified Nicotine dependence Plan: -Patient continues to meet criteria for inpatient psychiatric admission for symptom stabilization and safety. Patient has signed adult voluntary form and medication consent and was placed in patient's chart. -Medications: continue with Cymbalta to 60 mg daily for mood/anxiety, consider increasing over the weekend if needed. Continue trazodone 50 mg daily at bedtime for insomnia/mood. Continue with Requip 0.25 mg daily at bedtime for restless leg symptoms. -When necessary Ativan and Haldol for agitation/aggression. -NRT - nicotine patch -SW on board for discharge planning. Encouraged the patient to participate in milieu. likely d/c sunday if patient does well over the weekend.
[2020-07-23] MEDS: ALBUTEROL INHALER 60 PUFF/8 GM INHALER (MHU) INHALATION PRN (14:55)
[2020-07-23] MEDS: FLUTICASONE 50MCG/SPRAY NASAL 16GM NASAL PRN (20:23)
[2020-07-23] MEDS: MONTELUKAST 10 MG TAB PO SCH (20:25)
[2020-07-23] MEDS: traZODone HCL 50 MG TAB PO SCH (20:26)
[2020-07-24] MEDS: SYMBICORT 160-4.5 MCG INHALER (MHU) INHALATION SCH ×2 (09:03→20:12)
[2020-07-24] MEDS: FLUTICASONE 110 MCG INHALER (MHU) INHALATION SCH ×2 (09:03→20:12)
[2020-07-24] MEDS: LORATADINE 10 MG TAB PO SCH (09:04)
[2020-07-24] MEDS: DULoxetine HCL 60 MG CAPSULE.DR PO SCH (09:04)
[2020-07-24] MEDS: FERROUS SULFATE 325 MG TAB PO SCH ×3 (09:04→20:12)
[2020-07-24] MEDS: VARENICLINE 1 MG TAB PO SCH ×2 (09:06→20:14)
--- NOTE | 2020-07-24 17:02 | P.PN ---
Progress Note - Text Progress Note Date: 07/24/20 Clinical Problems: Major depressive disorder recurrent severe with psychotic distress, tobacco use Interim history: I reviewed the medical record and interviewed the patient. She is a 40-year-old woman admitted to psychiatric unit voluntarily with complaints of depression, anxiety and suicidal ideation. She described lessening of the suicidal thoughts and decreased feelings of hopelessness. However, she described continued subjective and objective symptoms of anxiety. She reported a slight decrease in anxiety with the current dose of Cymbalta. She is not taking Ativan for anxiety. Mental status exam: She presented as an obese 40-year-old female who is tense, restless and anxious throughout the interview. She made eye contact and attended to interview. She was shaking her legs throughout the interview. Her speech was spontaneous with normal rate and rhythm. Affect was anxious and at times intense. She denied current suicidal ideation or wishes. She described continued feelings of hopelessness and helplessness. She did not express ideas reference, paranoid ideation or delusions. Her thinking was abstract and associations were coherent and logical. Assessment: She continues to have symptoms of depression and anxiety although symptoms are most prominent. Her suicidal thoughts and preoccupations have lessened. Plan: Continue inpatient treatment. Safety precautions. Continue Cymbalta 60 mg daily, gabapentin 3 mg at bedtime when necessary and Desyrel 50 mg at bedtime. I encouraged her to try a dose of Ativan really benefit of benzodiazepine on her symptoms. Encouraged continued participation in therapeutic groups and activities. Evaluate clinical status response to treatment daily basis.
[2020-07-24] MEDS: MONTELUKAST 10 MG TAB PO SCH (20:12)
[2020-07-24] MEDS: traZODone HCL 50 MG TAB PO SCH (20:13)
[2020-07-24] MEDS: FLUTICASONE 50MCG/SPRAY NASAL 16GM NASAL PRN (20:14)
[2020-07-25] MEDS: FLUTICASONE 110 MCG INHALER (MHU) INHALATION SCH ×2 (08:59→22:40)
[2020-07-25] MEDS: SYMBICORT 160-4.5 MCG INHALER (MHU) INHALATION SCH ×2 (08:59→20:49)
[2020-07-25] MEDS: VARENICLINE 1 MG TAB PO SCH ×2 (09:00→20:47)
[2020-07-25] MEDS: FERROUS SULFATE 325 MG TAB PO SCH ×2 (09:01→20:46)
[2020-07-25] MEDS: LORATADINE 10 MG TAB PO SCH (09:01)
[2020-07-25] MEDS: DULoxetine HCL 60 MG CAPSULE.DR PO SCH (09:01)
[2020-07-25] MEDS: ALBUTEROL INHALER 60 PUFF/8 GM INHALER (MHU) INHALATION PRN (12:00)
--- NOTE | 2020-07-25 13:47 | P.PN ---
Progress Note - Text Progress Note Date: 07/25/20 Clinical Problems: Major depressive disorder recurrent severe with psychotic distress, tobacco use Interim history: I reviewed the medical record and interviewed the patient. She reported that she feels "a little bit" less anxious than yesterday. She is more open and talked about the issues and concerns that perhaps the hospital. She described continued grief over the of her mother but the proximal cause is a current relationship. She described a somewhat ambivalent relationship with her boyfriend whom she believes cut off contact with her on the day she was [facility]. She described her suspicions that he might be having an affair with the results ex- or girlfriend although. She reports experience mild relief of anxiety with single dose of Ativan is not requested additional doses. She attends few therapeutic groups and activities. She slept 6 hours last night. Mental status exam: She presented as an obese 40-year-old female who is tense, restless and anxious throughout the interview. She made eye contact and attended to interview. She was shaking her legs throughout the interview and restlessness worsened she described her interpersonal problems. Her speech was consistent with her affect. Affect was anxious and depressed. She denied current suicidal ideation or wishes. She described continued feelings of hopelessness and helplessness. She did not express ideas reference, paranoid ideation or delusions. Her thinking was abstract and associations were coherent and logical. Assessment: She has continued symptoms of depression and anxiety related to continued grief from that her mother and the feelings of abandonment by boyfriend. I suspect that she has an underlying borderline personality structure. Plan: Continue inpatient treatment. Safety precautions. Increase Cymbalta to 90 mg daily, continue gabapentin 3 mg at bedtime when necessary and Desyrel 50 mg at bedtime. Ativan and/or Haldol when necessary for agitation, anxiety or psychosis.. Encouraged continued participation in therapeutic groups and act ivities. Evaluate clinical status response to treatment daily basis.
[2020-07-25] MEDS: MONTELUKAST 10 MG TAB PO SCH (20:47)
[2020-07-25] MEDS: traZODone HCL 50 MG TAB PO SCH (20:47)
[2020-07-25] MEDS: FLUTICASONE 50MCG/SPRAY NASAL 16GM NASAL PRN (20:49)
[2020-07-26 07:24] VITALS: BP 123/66; PULSE 83
[2020-07-26] MEDS ORDERED: DULoxetine HCL 30 MG CAPSULE.DR PO SCH (09:00)
[2020-07-26] MEDS: FLUTICASONE 50MCG/SPRAY NASAL 16GM NASAL PRN (09:14)
[2020-07-26] MEDS: SYMBICORT 160-4.5 MCG INHALER (MHU) INHALATION SCH (09:14)
[2020-07-26] MEDS: FERROUS SULFATE 325 MG TAB PO SCH (09:16)
[2020-07-26] MEDS: FLUTICASONE 110 MCG INHALER (MHU) INHALATION SCH (09:16)
[2020-07-26] MEDS: VARENICLINE 1 MG TAB PO SCH (09:16)
[2020-07-26] MEDS: LORATADINE 10 MG TAB PO SCH (09:17)
[2020-07-26] MEDS: ACETAMINOPHEN TAB 325 MG TAB PO PRN (09:19)
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
[2020-07-26] MEDS: ALBUTEROL INHALER 60 PUFF/8 GM INHALER (MHU) INHALATION PRN (13:57)
[2020-07-26 16:32] VITALS: TEMP 97.8
== END 2020-07-26 16:20 | disposition home or self-care (01) | DRG 885 ==
LOC: EC 18:11 → 3MHU 23:47
PROVIDERS: ADMIT Psychiatry & Neurology Psychiatry; ATTEND Psychiatry & Neurology Psychiatry
DX: F33.2 Major depressive disorder, recurrent severe without psychotic features (principal); R45.851 Suicidal ideations; Z68.43 Body mass index [BMI] 50.0-59.9, adult; E66.01 Morbid (severe) obesity due to excess calories; F06.4 Anxiety disorder due to known physiological condition; F17.210 Nicotine dependence, cigarettes, uncomplicated; F41.1 Generalized anxiety disorder; G25.81 Restless legs syndrome; Z20.822 Contact with and (suspected) exposure to COVID-19; G47.00 Insomnia, unspecified; J45.909 Unspecified asthma, uncomplicated; K21.9 Gastro-esophageal reflux disease without esophagitis; M54.10 Radiculopathy, site unspecified; Z79.51 Long term (current) use of inhaled steroids; Z79.899 Other long term (current) drug therapy; Z81.8 Family history of other mental and behavioral disorders; Z86.718 Personal history of other venous thrombosis and embolism
CPT/HCPCS: 80306; 81025; 82075; 87635; 94640; 99285

== ENCOUNTER 2020-10-02 16:10 | Emergency (ER) | payer OTHER ==
[2020-10-02 16:15] VITALS: TEMP 98.2
[2020-10-02] MEDS ORDERED: SODIUM CHLORIDE 0.9% 1,000 ML IV STA (16:40)
--- NOTE | 2020-10-02 17:03 | ED ---
Abdominal Pain HPI - General Chief Complaint: Abdominal Pain Stated Complaint: Female Time Seen by Provider: 10/02/20 16:38 Source: patient Mode of arrival: ambulatory Limitations: no limitations - History of Present Illness Initial Comments: 40-year-old female presents to the emergency department with a chief complaint of abdominal pain. Patient reports the symptoms of an ongoing for the past month and is located in the lower abdominal region. Patient reports there is a history of ovarian cysts but she has not been following up with a worsted winder for monitoring. Patient reports the symptoms have been exacerbated over the last 2 days where now she is developing abdominal cramping with some nausea but no vomiting. She denies any vaginal bleeding, discharge, itching or foul smell. Denies any infectious or obstructive urinary symptoms. She denies any chest pain or shortness of breath. She is not concerned for any STDs. Surgical hist ory consisting of appendectomy, cholecystectomy, . - Related Data Home Medications Medication Instructions Recorded Confirmed Gabapentin [Neurontin] 300 mg PO HS PRN 03/29/20 07/21/20 Albuterol Inhaler [Ventolin Hfa 1 puff INHALATION RT-QID PRN 04/01/20 07/21/20 Inhaler] Baclofen [Lioresal] 20 mg PO DAILY PRN 07/20/20 07/21/20 Budesonide/Formoterol Fumarate 2 puff INHALATION RT-BID 07/20/20 07/21/20 [Symbicort 160-4.5 Mcg Inhaler] Previous Rx's Medication Instructions Recorded DULoxetine HCL [Cymbalta] 90 mg PO DAILY 30 Days capsule. 07/26/20 Loratadine [Claritin] 10 mg PO DAILY 30 Days tab 07/26/20 rOPINIRole HCL [Requip] 0.25 mg PO HS 30 Days #30 tab 07/26/20 traZODone HCL [Desyrel] 50 mg PO HS 30 Days #30 tab 07/26/20 Allergies Allergy/AdvReac Type Severity Reaction Status Date / Time sulfamethoxazole Allergy Rash/Hives Verified 10/02/20 16:15 [From Bactrim] Surgical Tape Allergy Rash/Hives Uncoded 10/02/20 16:15 Review of Systems ROS Statement: Those systems with pertinent positive or pertinent negative responses have been documented in the HPI. ROS Other: All systems not noted in ROS Statement are negative. Past Medical History Past Medical History: Asthma, Deep Vein Thrombosis (DVT), GERD/Reflux Additional Past Medical History / Comment(s): Current pinched nerve in right leg. Hx DVT in right leg with 2nd . Migraines. Tingling, burning and heaviness, usually at night, in bilateral legs and left arm from unknown cause. History of Any Multi-Drug Resistant Organisms: None Reported Past Surgical History: Appendectomy, Section, Cholecystectomy, Orthopedic Surgery Additional Past Surgical History / Comment(s): Arthroscopy bilateral knees, Section X3. Past Anesthesia/Blood Transfusion Reactions: No Reported Reaction Past Psychological History: Anxiety, Depression Smoking Status: Current every day smoker Past Alcohol Use History: None Reported Past Drug Use History: None Reported - Past Family History Mother Family Medical History: CVA/TIA Additional Family Medical History / Comment(s): "Breast tumors, blood clots that caused multiple strokes." Father Family Medical History: Unable to Obtain Additional Family Medical History / Comment(s): Pt unaware of father's health history. General Exam Limitations: no limitations General appearance: alert, in no apparent distress, obese Head exam: Present: atraumatic, normocephalic, normal inspection Eye exam: Present: normal appearance, PERRL, EOMI Pupils: Present: normal accommodation ENT exam: Present: normal exam, normal oropharynx, mucous membranes moist, TM's normal bilaterally, normal external ear exam Neck exam: Present: normal inspection, full ROM. Absent: tenderness Respiratory exam: Present: normal lung sounds bilaterally. Absent: respiratory distress Cardiovascular Exam: Present: regular rate, normal rhythm, normal heart sounds. Absent: systolic murmur GI/Abdominal exam: Present: soft, tenderness (Mild lower abdominal tenderness). Absent: distended, guarding, rebound Extremities exam: Present: normal inspection, full ROM, normal capillary refill. Absent: tenderness, pedal edema, joint swelling Back exam: Present: normal inspection, full ROM. Absent: tenderness, CVA tenderness (R), CVA tenderness (L) Neurological exam: Present: alert, oriented X3 Psychiatric exam: Present: normal affect, normal mood Skin exam: Present: warm, dry, intact, normal color Course Vital Signs 10/02/20 10/02/20 10/02/20 16:12 18:23 19:01 Temperature 98.2 F 98.2 F Pulse Rate 96 63 83 Respiratory 20 18 18 Rate Blood Pressure 121/76 127/85 116/73 O2 Sat by Pulse 100 100 100 Oximetry Medical Decision Making - Medical Decision Making 40-year-old female presents to the emergency department with a chief complaint of abdominal pain. On physical examination, mild suprapubic Tenderness. No CVA tenderness. Vital signs are within normal limits. CBC revealed anemia with a hemoglobin of 8.7. CMP shows mild elevation in BUN of 24. UA does show some positive ketones but no signs of urinary checked infection. Patient was given IV fluids, antiemetics and analgesia. Pelvic ultrasound reveals a left ovarian cyst measuring approximately 423. Right ovary was not visualized. I offered pelvic examination, she declined. On reevaluation, patient reports improvement in her symptoms. She will be discharged with Gailfran advised to follow-up with [facility] for restorative care worsted winder. Strict return primary's with no discussed the patient is an attending agreeable. Case discussed with Dr. Carballo. - Lab Data Result diagrams: 10/02/20 16:45 10/02/20 16:45 Lab Results 10/02/20 10/02/20 10/02/20 Range/Units 16:45 16:45 17:09 WBC 10.1 (3.8-10.6) k/uL RBC 4.74 (3.80-5.40) m/uL Hgb 8.7 L (11.4-16.0) gm/dL Hct 30.3 L (34.0-46.0) % MCV 63.9 L (80.0-100.0) fL MCH 18.3 L (25.0-35.0) pg MCHC 28.7 L (31.0-37.0) g/dL RDW 19.2 H (11.5-15.5) % Plt Count 321 (150-450) k/uL MPV 7.0 Neutrophils % 70 % Lymphocytes % 22 % Monocytes % 4 % Eosinophils % 2 % Basophils % 0 % Neutrophils # 7.1 (1.3-7.7) k/uL Lymphocytes # 2.2 (1.0-4.8) k/uL Monocytes # 0.4 (0-1.0) k/uL Eosinophils # 0.2 (0-0.7) k/uL Basophils # 0.0 (0-0.2) k/uL Manual Slide Review Performed Hypochromasia Marked Poikilocytosis Slight Anisocytosis Slight Microcytosis Marked Ovalocytes Present Sodium 136 L (137-145) mmol/L Potassium 4.6 (3.5-5.1) mmol/L Chloride 107 (98-107) mmol/L Carbon Dioxide 23 (22-30) mmol/L Anion Gap 6 mmol/L BUN 24 H (7-17) mg/dL Creatinine 0.88 (0.52-1.04) mg/dL Est GFR (CKD-EPI)AfAm >90 (>60 ml/min/1.73 sqM) Est GFR (CKD-EPI)NonAf 84 (>60 ml/min/1.73 sqM) Glucose 89 (74-99) mg/dL Calcium 9.2 (8.4-10.2) mg/dL Total Bilirubin 0.2 (0.2-1.3) mg/dL AST 24 (14-36) U/L ALT 19 (4-34) U/L Alkaline Phosphatase 102 (38-126) U/L Total Protein 6.8 (6.3-8.2) g/dL Albumin 3.8 (3.5-5.0) g/dL Amylase 75 (30-110) U/L Lipase 195 (23-300) U/L Urine Color Yellow Urine Appearance Clear (Clear) Urine pH 5.5 (5.0-8.0) Ur Specific [place] 1.042 H (1.001-1.035) Urine Protein Trace H (Negative) Urine Glucose (UA) Negative (Negative) Urine Ketones Trace H (Negative) Urine Blood Small H (Negative) Urine Nitrite Negative (Negative) Urine Bilirubin Negative (Negative) Urine Urobilinogen 2.0 (<2.0) mg/dL Ur Leukocyte Esterase Negative (Negative) Urine RBC 6 H (0-5) /hpf Urine WBC 1 (0-5) /hpf Ur Squamous Epith Cells 5 H (0-4) /hpf Urine Mucus Few H (None) /hpf Urine HCG, Qual (Not Detectd) 10/02/20 Range/Units 17:09 WBC (3.8-10.6) k/uL RBC (3.80-5.40) m/uL Hgb (11.4-16.0) gm/dL Hct (34.0-46.0) % MCV (80.0-100.0) fL MCH (25.0-35.0) pg MCHC (31.0-37.0) g/dL RDW (11.5-15.5) % Plt Count (150-450) k/uL MPV Neutrophils % % Lymphocytes % % Monocytes % % Eosinophils % % Basophils % % Neutrophils # (1.3-7.7) k/uL Lymphocytes # (1.0-4.8) k/uL Monocytes # (0-1.0) k/uL Eosinophils # (0-0.7) k/uL Basophils # (0-0.2) k/uL Manual Slide Review Hypochromasia Poikilocytosis Anisocytosis Microcytosis Ovalocytes Sodium (137-145) mmol/L Potassium (3.5-5.1) mmol/L Chloride (98-107) mmol/L Carbon Dioxide (22-30) mmol/L Anion Gap mmol/L BUN (7-17) mg/dL Creatinine (0.52-1.04) mg/dL Est GFR (CKD-EPI)AfAm (>60 ml/min/1.73 sqM) Est GFR (CKD-EPI)NonAf (>60 ml/min/1.73 sqM) Glucose (74-99) mg/dL Calcium (8.4-10.2) mg/dL Total Bilirubin (0.2-1.3) mg/dL AST (14-36) U/L ALT (4-34) U/L Alkaline Phosphatase (38-126) U/L Total Protein (6.3-8.2) g/dL Albumin (3.5-5.0) g/dL Amylase (30-110) U/L Lipase (23-300) U/L Urine Color Urine Appearance (Clear) Urine pH (5.0-8.0) Ur Specific [place] (1.001-1.035) Urine Protein (Negative) Urine Glucose (UA) (Negative) Urine Ketones (Negative) Urine Blood (Negative) Urine Nitrite (Negative) Urine Bilirubin (Negative) Urine Urobilinogen (<2.0) mg/dL Ur Leukocyte Esterase (Negative) Urine RBC (0-5) /hpf Urine WBC (0-5) /hpf Ur Squamous Epith Cells (0-4) /hpf Urine Mucus (None) /hpf Urine HCG, Qual Not Detected (Not Detectd) Disposition Clinical Impression: Ovarian cyst, left, Abdominal pain, Anemia Disposition: HOME SELF-CARE Condition: Stable Instructions (If sedation given, give patient instructions): Ovarian Cyst (ED), Anemia (ED) Additional Instructions: Follow-up with your primary care physician. Also follow-up with your worsted winder. Return to emergency department if symptoms worsen. Is patient prescribed a controlled substance at d/c from ED?: No Referrals: Hemant Valdovinos MD [Primary Care Provider] - 1-2 days Time of Disposition: 18:48
[2020-10-02 17:08] LABS: ALT 19 U/L (4-34); AST 24 U/L (14-36); African American GFR (CKD) >90 (>60 ml/min/1.73 sqM); Albumin 3.8 g/dL (3.5-5.0); Alkaline Phosphatase 102 U/L (38-126); Amylase 75 U/L (30-110); Anion Gap 6 mmol/L; Blood Urea Nitrogen 24 mg/dL (7-17); Calcium 9.2 mg/dL (8.4-10.2); Carbon Dioxide 23 mmol/L (22-30); Chloride 107 mmol/L (98-107); Glucose 89 mg/dL (74-99); Lipase 195 U/L (23-300); Non-African American GFR(CKD) 84 (>60 ml/min/1.73 sqM); Potassium 4.6 mmol/L (3.5-5.1); Sodium 136 mmol/L (137-145); Total Bilirubin 0.2 mg/dL (0.2-1.3); Total Protein 6.8 g/dL (6.3-8.2)
[2020-10-02 17:22] LABS: Anisocytosis Slight; Basophils % (A) 0 %; Eosinophils # (A) 0.2 k/uL (0-0.7); Eosinophils % (A) 2 %; HCT 30.3 % (34.0-46.0); HGB 8.7 gm/dL (11.4-16.0); Hypochromasia Marked; Lymphocytes # (A) 2.2 k/uL (1.0-4.8); Lymphocytes % (A) 22 %; MCH 18.3 pg (25.0-35.0); MCHC 28.7 g/dL (31.0-37.0); MCV 63.9 fL (80.0-100.0); Microcytosis Marked; Monocytes # (A) 0.4 k/uL (0-1.0); Monocytes % (A) 4 %; Neutrophils # (A) 7.1 k/uL (1.3-7.7); Neutrophils % (A) 70 %; Platelet Count 321 k/uL (150-450); Poikilocytosis Slight; RBC 4.74 m/uL (3.80-5.40); RDW 19.2 % (11.5-15.5); WBC 10.1 k/uL (3.8-10.6)
[2020-10-02] MEDS ORDERED: ONDANSETRON 4 MG/2 ML VIAL IVP STA (17:41)
[2020-10-02] MEDS ORDERED: KETOROLAC 15 MG/ML 1 ML VIAL IVP STA (17:41)
[2020-10-02 17:44] LABS: Appearance,Urine Clear (Clear); Bilirubin,Urine Negative (Negative); Blood,Urine Small (Negative); Color,Urine Yellow; Glucose,Urine (UA) Negative (Negative); Ketones,Urine Trace (Negative); Leukocyte Esterase,Urine Negative (Negative); Mucus,Urine Few /hpf; Nitrite,Urine Negative (Negative); PH, Urine 5.5 (5.0-8.0); Protein,Urine Trace (Negative); RBC,Urine 6 /hpf (0-5); Specific Gravity,Urine 1.042 (1.001-1.035); Squamous Epithelial Cell,Urine 5 /hpf (0-4); WBC,Urine 1 /hpf (0-5)
[2020-10-02 17:57] LABS: Ovalocytes Present
[2020-10-02 18:24] VITALS: RESP 18
--- NOTE | 2020-10-02 18:29 | US ---
EXAMINATION TYPE: US transvaginal DATE OF EXAM: 10/02/2020 COMPARISON: US 2019 CLINICAL HISTORY: lower abd pain, hx of ovarian cysts. Pelvic pain x couple weeks, irregular cycles x couple months, 4, para 3, miscarriage 1, history of c-sections and tubal ligation. TECHNIQUE: Transvaginal ER exam. Date of LMP: 10/02/20 EXAM MEASUREMENTS: Uterus: 9.9 x 5.3 x 4.6 cm Endometrial Stripe: 1.0 cm Left Ovary: 3.1 x 1.6 x 1.4 cm Difficult and limited study due to patient body habitus 1. Uterus: limited visualization, retroflexed, heterogeneous 2. Endometrium: appears thickened by patient's LMP 3. Right Ovary: not seen 4. Left Ovary: Spectral, color and waveform doppler imaging shows good arterial and venous flow within the left ov annie; there is no evidence for ovarian torsion within the left ovary 5. Bilateral Adnexa: 4.3 x 2.1 x 3.2cm cystic area adjacent to left ovary 6. Posterior cul-de-sac: wnl IMPRESSION: Left ovarian cyst. No solid adnexal mass. Right ovary not seen.
[2020-10-02 19:03] VITALS: BP 116/73; PULSE 83
== END 2020-10-02 19:04 | disposition home or self-care (01) ==
LOC: EC 16:10
DX: N83.202 Unspecified ovarian cyst, left side (principal); D64.9 Anemia, unspecified; K21.9 Gastro-esophageal reflux disease without esophagitis; J45.909 Unspecified asthma, uncomplicated; Z86.718 Personal history of other venous thrombosis and embolism; G43.909 Migraine, unspecified, not intractable, without status migrainosus; Z79.51 Long term (current) use of inhaled steroids; F32.9 Major depressive disorder, single episode, unspecified; F41.9 Anxiety disorder, unspecified; F17.200 Nicotine dependence, unspecified, uncomplicated
CPT/HCPCS: 36415; 80053; 82150; 83690; 85025; 81001; 81025; 93975; 76830; 99284; 96374; 96375; 96361 ×2; J2405; J1885

== ENCOUNTER 2020-12-07 06:22 | Day surgery (SDC) | payer OTHER ==
[2020-12-06 09:43] VITALS: BMI 50.3
--- NOTE | 2020-12-06 16:06 | P.HPOB ---
History of Present Illness H&P Date: 12/06/20 Chief Complaint: Dysfunctional uterine bleeding Patient is a 40-year-old female with heavy vaginal bleeding. Symptoms and have been present for a number of months and they're severely limiting her lifestyle. She had 3's prior sections and the result of scarring from the sections makes her a poor candidate for a hysterectomy and she is unable to take hormones as a smoker over the age 36 limiting our ability to treat this effectively. She is scheduled for a D&C with hysteroscopy and NovaSure to try and get her bleeding controlled. We did discuss potentially I reviewed these were lysed that a but she is declining those options. All questions are answered for her prior to proceeding to the operative room. Risks and benefits were reviewed in great detail. Did include but were not limited to bleeding and infection, damage to potentially bladder or bowel. She is aware that the symptoms may not completely go away but she is hopeful at least the bleeding will get the point where she is able to function again. Past Medical History Past Medical History: Asthma, Deep Vein Thrombosis (DVT), GERD/Reflux Additional Past Medical History / Comment(s): Hx. pinched nerve in right leg. Hx DVT in right leg with 2nd . Migraines. restless leg, heavy frequent periods History of Any Multi-Drug Resistant Organisms: None Reported Past Surgical History: Appendectomy, Section, Cholecystectomy, Orthopedic Surgery Additional Past Surgical History / Comment(s): Arthroscopy bilateral knees, Section X3. Past Anesthesia/Blood Transfusion Reactions: No Reported Reaction Smoking Status: Current every day smoker - Past Family History Mother Family Medical History: CVA/TIA Additional Family Medical History / Comment(s): "Breast tumors, blood clots that caused multiple strokes." Father Family Medical History: Unable to Obtain Additional Family Medical History / Comment(s): Pt unaware of father's health history. Medications and Allergies Home Medications Medication Instructions Recorded Confirmed Type Gabapentin [Neurontin] 300 mg PO HS PRN 03/29/20 12/06/20 History Albuterol Inhaler [Ventolin Hfa 1 puff INHALATION RT-QID PRN 04/01/20 12/06/20 History Inhaler] Budesonide/Formoterol Fumarate 2 puff INHALATION RT-BID 07/20/20 12/06/20 His tory [Symbicort 160-4.5 Mcg Inhaler] traZODone HCL [Desyrel] 50 mg PO HS 30 Days #30 tab 07/26/20 12/06/20 Rx Cetirizine HCl [Zyrtec] 10 mg PO DAILY 12/06/20 12/06/20 History DULoxetine HCL [Cymbalta] 120 mg PO DAILY 12/06/20 12/06/20 History Fluticasone Nasal [place] [Flonase 2 spr EA NOSTRIL DAILY 12/06/20 12/06/20 History Nasal [place]] Montelukast [Singulair] 10 mg PO HS 12/06/20 12/06/20 History busPIRone HCl [Buspar] 10 mg PO BID 12/06/20 12/06/20 History rOPINIRole HCL [Requip] 0.5 mg PO HS 12/06/20 12/06/20 History Allergies Allergy/AdvReac Type Severity Reaction Status Date / Time sulfamethoxazole Allergy Rash/Hives Verified 12/06/20 08:55 [From Bactrim] Surgical Tape Allergy Rash/Hives Uncoded 12/06/20 08:55 Exam Osteopathic Statement: *. No significant issues noted on an osteopathic structural exam other than those noted in the History and Physical/Consult. Intake and Output 12/06/20 12/06/20 12/06/20 06:59 14:59 22:59 Other: Weight 128.82 kg - OBG Physical Exam Abdomen: Morbidly obese
[~2020-12-07 06:22] MED LIST changes: -DEXAMETHASONE SOD PHOSPHATE 10 MG/ML 1 ML VIAL IV ONE; -HYDROmorphone 0.5 MG/0.5 ML SYRINGE IVP PRN; -ONDANSETRON 4 MG/2 ML VIAL IVP ONE
[2020-12-07 06:48] VITALS: TEMP 97.6
[2020-12-07] MEDS ORDERED: ONDANSETRON 4 MG/2 ML VIAL ONE (06:53)
[2020-12-07] MEDS ORDERED: ONDANSETRON 4 MG/2 ML VIAL IVP ONE (06:56)
[2020-12-07] MEDS ORDERED: SCOPOLAMINE 1.5MG/72HR PATCH TRANSDERM ONE (06:56)
[2020-12-07] MEDS ORDERED: DEXAMETHASONE SOD PHOSPHATE 4 MG/ML 1 ML VIAL IVP ONE (06:56)
[2020-12-07] MEDS ORDERED: MIDAZOLAM 2 MG/2 ML VIAL ONE (07:29)
[2020-12-07] MEDS ORDERED: SUCCINYLCHOLINE CHLORIDE 100 MG/5 ML SYR IV ONE (07:29)
[2020-12-07] MEDS ORDERED: PROPOFOL 10 MG/ML 20 ML VIAL IV ONE (07:29)
[2020-12-07] MEDS ORDERED: LIDOCAINE 1% INJ 10MG/ML (20 ML MDV) ONE (07:29)
[2020-12-07] MEDS ORDERED: fentaNYL (PF) 50 MCG/ML 2 ML AMP ONE (07:29)
[2020-12-07] MEDS ORDERED: KETOROLAC 15 MG/ML 1 ML VIAL ONE (07:29)
--- NOTE | 2020-12-07 08:07 | P.OP ---
Date of Procedure: 12/07/20 Preoperative Diagnosis: Dysfunctional uterine bleeding Postoperative Diagnosis: Same Procedure(s) Performed: D&C with hysteroscopy and NovaSure Anesthesia: NGOC Surgeon: Ford George Estimated Blood Loss (ml): 3 IV fluids (ml): 300 Pathology: other (Uterine curettings) Condition: stable Disposition: same day Operative Findings: Pathology pending Description of Procedure: Patient was taken to the operating suite where a general anesthetic was found be adequate. She was prepped and draped in the normal sterile fashion and placed in the dorsal lithotomy position. Initially a weighted speculum was inserted in the vagina and the anterior lip cervix identified and grasped with single-tooth tenaculum. Cervix was then dilated and camera was inserted. Proliferative endometrium was noted otherwise no other findings. Camera was then removed and sharp curettings of the endometrium were obtained and placed on Telfa sent to pathology. Once this was completed NovaSure system was brought in with a length of 4.5 and a width of 2.7 it was tested and passed its patency test. Once this occurred it was enabled and the burn lasted for 1 minute and 9 seconds. At the conclusion the burn camera was reinserted with good burn noted. All instruments were then removed. Sponge, lap, needle counts were all correct 2. Patient was then taken to the recovery room in stable and satisfactory condition. Plan - Discharge Summary Discharge Rx Participant: No New Discharge Prescriptions: New Ibuprofen [Motrin] 600 mg PO Q6HR PRN #30 tab PRN Reason: Pain No Action Gabapentin [Neurontin] 300 mg PO HS PRN PRN Reason: Pain Albuterol Inhaler [Ventolin Hfa Inhaler] 1 puff INHALATION RT-QID PRN PRN Reason: Shortness Of Breath Budesonide/Formoterol Fumarate [Symbicort 160-4.5 Mcg Inhaler] 2 puff INHALATION RT-BID traZODone HCL [Desyrel] 50 mg PO HS 30 Days #30 tab Fluticasone Nasal [place] [Flonase Nasal [place]] 2 spr EA NOSTRIL DAILY busPIRone HCl [Buspar] 10 mg PO BID Montelukast [Singulair] 10 mg PO HS Cetirizine HCl [Zyrtec] 10 mg PO DAILY rOPINIRole HCL [Requip] 0.5 mg PO HS DULoxetine HCL [Cymbalta] 120 mg PO DAILY Discharge Medication List Gabapentin [Neurontin] 300 mg PO HS PRN 03/29/20 [History] Albuterol Inhaler [Ventolin Hfa Inhaler] 1 puff INHALATION RT-QID PRN 04/01/20 [History] Budesonide/Formoterol Fumarate [Symbicort 160-4.5 Mcg Inhaler] 2 puff INHALATION RT-BID 07/20/20 [History] traZODone HCL [Desyrel] 50 mg PO HS 30 Days #30 tab 07/26/20 [Rx] Cetirizine HCl [Zyrtec] 10 mg PO DAILY 12/06/20 [History] DULoxetine HCL [Cymbalta] 120 mg PO DAILY 12/06/20 [History] Fluticasone Nasal [place] [Flonase Nasal [place]] 2 spr EA NOSTRIL DAILY 12/06/20 [History] Montelukast [Singulair] 10 mg PO HS 12/06/20 [History] busPIRone HCl [Buspar] 10 mg PO BID 12/06/20 [History] rOPINIRole HCL [Requip] 0.5 mg PO HS 12/06/20 [History] Ibuprofen [Motrin] 600 mg PO Q6HR PRN #30 tab 12/07/20 [Rx] Follow up Appointment(s)/Referral(s): Ford George DO [Doctor of Osteopathic Medicine] - 10 Days Patient Instructions/Handouts: *Surgery [facility] - Scopalamine Patch Instructions Activity/Diet/Wound Care/Special Instructions: No heavy lifting, limit stairs and driving, and pelvic rest. If any high temperatures, heavy bleeding, or severe pain call my office Discharge Disposition: HOME SELF-CARE
[2020-12-07] MEDS ORDERED: HYDROmorphone 0.5 MG/0.5 ML SYRINGE IVP ONE (08:35)
[2020-12-07 09:03] VITALS: RESP 16
[2020-12-07 09:29] VITALS: BP 130/84
[2020-12-07] MEDS ORDERED: IPRATROPIUM-ALBUTEROL 3 ML NEB INHALATION STA (09:40)
[2020-12-07 10:06] VITALS: PULSE 90
== END 2020-12-07 10:20 | disposition home or self-care (01) ==
LOC: OR 06:22
PROVIDERS: ATTEND Obstetrics & Gynecology
DX: N93.8 Other specified abnormal uterine and vaginal bleeding (principal); J45.909 Unspecified asthma, uncomplicated; K21.9 Gastro-esophageal reflux disease without esophagitis; Z86.718 Personal history of other venous thrombosis and embolism; G25.81 Restless legs syndrome; G43.909 Migraine, unspecified, not intractable, without status migrainosus; F17.200 Nicotine dependence, unspecified, uncomplicated; Z82.3 Family history of stroke; Z80.3 Family history of malignant neoplasm of breast; F17.210 Nicotine dependence, cigarettes, uncomplicated; F32.9 Major depressive disorder, single episode, unspecified; F41.9 Anxiety disorder, unspecified; E66.01 Morbid (severe) obesity due to excess calories; Z68.43 Body mass index [BMI] 50.0-59.9, adult; Z79.51 Long term (current) use of inhaled steroids; Z79.899 Other long term (current) drug therapy; Z88.2 Allergy status to sulfonamides; Z91.09 Other allergy status, other than to drugs and biological substances
CPT/HCPCS: 94640; 81025; 88305; 58563; J2250; J1100; J2405; J2001; J3010; J1885; J0330; J2704; J1170

== ENCOUNTER 2020-12-14 16:13 | Emergency (ER) | payer OTHER ==
--- NOTE | 2020-12-14 16:58 | ED ---
Extremity Problem HPI - General Chief complaint: Extremity Problem,Nontraumatic Stated complaint: Rt Leg Pain Time Seen by Provider: 12/14/20 16:24 Source: patient Mode of arrival: ambulatory Limitations: no limitations - History of Present Illness Initial comments: 40-year-old female presents to the emergency department with a chief complaint of leg pain. Patient reports the pain started about 2-3 days ago while she was walking. Patient reports she noticed pain in the anterior aspect of the right upper thigh. Reports the pain is exacerbated with right hip flexion and abduction. States she can feel and "knot" that appears to be tender to palpation. She also reports recent D&C and has had postoperative pain since. However, most of the pain that she is concerned about is located in the leg. She denies any direct trauma to the region. She denies any paresthesias. States the pain does not radiate anywhere and is only localized to that area. Reports taking [id number] ALLERGY 6 with no significant improvement in symptoms. - Related Data Home Medications Medication Instructions Recorded Confirmed Gabapentin [Neurontin] 300 mg PO HS PRN 03/29/20 12/06/20 Albuterol Inhaler [Ventolin Hfa 1 puff INHALATION RT-QID PRN 04/01/20 12/06/20 Inhaler] Budesonide/Formoterol Fumarate 2 puff INHALATION RT-BID 07/20/20 12/06/20 [Symbicort 160-4.5 Mcg Inhaler] Cetirizine HCl [Zyrtec] 10 mg PO DAILY 12/06/20 12/06/20 DULoxetine HCL [Cymbalta] 120 mg PO DAILY 12/06/20 12/06/20 Fluticasone Nasal [place] [Flonase 2 spr EA NOSTRIL DAILY 12/06/20 12/06/20 Nasal [place]] Montelukast [Singulair] 10 mg PO HS 12/06/20 12/06/20 busPIRone HCl [Buspar] 10 mg PO BID 12/06/20 12/06/20 rOPINIRole HCL [Requip] 0.5 mg PO HS 12/06/20 12/06/20 Previous Rx's Medication Instructions Recorded traZODone HCL [Desyrel] 50 mg PO HS 30 Days #30 tab 07/26/20 Ibuprofen [Motrin] 600 mg PO Q6HR PRN #30 tab 12/07/20 Allergies Allergy/AdvReac Type Severity Reaction Status Date / Time sulfamethoxazole Allergy Rash/Hives Verified 12/14/20 16:19 [From Bactrim] Surgical Tape Allergy Rash/Hives Uncoded 12/14/20 16:19 Review of Systems ROS Statement: Those systems with pertinent positive or pertinent negative responses have been documented in the HPI. ROS Other: All systems not noted in ROS Statement are negative. Past Medical History Past Medical History: Asthma, Deep Vein Thrombosis (DVT), GERD/Reflux Additional Past Medical History / Comment(s): Hx. pinched nerve in right leg. Hx DVT in right leg with 2nd . Migraines. restless leg, heavy frequent periods History of Any Multi-Drug Resistant Organisms: None Reported Past Surgical History: Appendectomy, Section, Cholecystectomy, Orthopedic Surgery Additional Past Surgical History / Comment(s): Arthroscopy bilateral knees, Section X3. Past Anesthesia/Blood Transfusion Reactions: No Reported Reaction Past Psychological History: Anxiety, Depression Smoking Status: Current every day smoker Past Alcohol Use History: Occasional Past Drug Use History: None Reported - Past Family History Mother Family Medical History: CVA/TIA Additional Family Medical History / Comment(s): "Breast tumors, blood clots that caused multiple strokes." Father Family Medical History: Unable to Obtain Additional Family Medical History / Comment(s): Pt unaware of father's health history. General Exam Limitations: no limitations General appearance: alert, in no apparent distress, obese Head exam: Present: atraumatic, normocephalic, normal inspection Eye exam: Present: normal appearance, PERRL, EOMI Pupils: Present: normal accommodation ENT exam: Present: normal exam, normal oropharynx, mucous membranes moist Neck exam: Present: normal inspection, full ROM. Absent: tenderness Respiratory exam: Present: normal lung sounds bilaterally. Absent: respiratory distress Cardiovascular Exam: Present: regular rate, normal rhythm, normal heart sounds. Absent: systolic murmur Extremities exam: Present: normal inspection, tenderness (Tenderness in the ventral aspect of her right hip. No protrusions to suggest any femoral hernias were noted. Pain exacerbated with flexion and abduction.). Absent: full ROM (Limited range of motion with flexion and abduction of the right hip.) Back exam: Present: normal inspection, full ROM. Absent: tenderness, CVA tenderness (R), CVA tenderness (L) Neurological exam: Present: alert, oriented X3 Psychiatric exam: Present: normal affect, normal mood Skin exam: Present: warm, dry, intact, normal color Course Vital Signs 12/14/20 12/14/20 16:14 17:27 Temperature 99.0 F 98 F Pulse Rate 87 76 Respiratory 16 18 Rate Blood Pressure 134/91 124/69 O2 Sat by Pulse 99 97 Oximetry Medical Decision Making - Medical Decision Making 40-year-old female presents emergency Department with a chief complaint of right leg pain. On physical examination, localized tenderness to the anterior aspect of the right proximal thigh. Pain definitively worse with right hip flexion and abduction. No concerns for a femoral hernia or inguinal hernia at this time. No signs of infection. Likely muscle strain appears to be the cause. She does not have any chest pain shortness of breath unilateral leg swelling or calf pain. She does not have any other nausea vomiting diarrhea. No vaginal sor urinary symptoms. I advised the patient to take it with [id number] analgesics. Conservative management for the pain. Advised to follow-up with the primary care physician. Strict return parameters were thoroughly discussed the patient was up standing and agreeable. Case discussed with Dr. Bush Disposition Clinical Impression: Muscle strain Disposition: HOME SELF-CARE Condition: Stable Additional Instructions: Please return to the Emergency Department if symptoms worsen or any other concerns. Is patient prescribed a controlled substance at d/c from ED?: No Referrals: Hemant Valdovinos MD [Primary Care Provider] - 1-2 days Time of Disposition: 16:58
[2020-12-14 17:27] VITALS: BP 124/69; PULSE 76; RESP 18; TEMP 98
== END 2020-12-14 17:27 | disposition home or self-care (01) ==
LOC: EC 16:13
DX: S76.911A Strain of unspecified muscles, fascia and tendons at thigh level, right thigh, initial encounter (principal); J45.909 Unspecified asthma, uncomplicated; K21.9 Gastro-esophageal reflux disease without esophagitis; F17.200 Nicotine dependence, unspecified, uncomplicated; F32.9 Major depressive disorder, single episode, unspecified; F41.9 Anxiety disorder, unspecified; Z79.1 Long term (current) use of non-steroidal anti-inflammatories (NSAID); Z79.51 Long term (current) use of inhaled steroids; Z88.1 Allergy status to other antibiotic agents; Z88.2 Allergy status to sulfonamides; Z86.718 Personal history of other venous thrombosis and embolism; X58.XXXA Exposure to other specified factors, initial encounter
CPT/HCPCS: 99283

== ENCOUNTER 2021-05-06 04:21 | Emergency (ER) | payer OTHER ==
[2021-05-06] MEDS ORDERED: SODIUM CHLORIDE 0.9% 1,000 ML IV STA ×2 (04:43)
[2021-05-06] MEDS ORDERED: DEXAMETHASONE SOD PHOSPHATE 10 MG/ML 1 ML VIAL IVP STA (04:43)
[2021-05-06] MEDS ORDERED: KETOROLAC 30 MG/ML 1 ML VIAL IVP STA (04:43)
[2021-05-06] MEDS ORDERED: ACETAMINOPHEN TAB 500 MG TAB PO STA (04:43)
--- NOTE | 2021-05-06 05:04 | XR ---
EXAMINATION TYPE: XR chest 1V portable DATE OF EXAM: 05/06/2021 COMPARISON: [id number] HISTORY: Pneumonia TECHNIQUE: FINDINGS: Single view shows a normal heart and mediastinum. Lungs are clear. Diaphragm is normal. Bon y thorax appears normal. IMPRESSION: Normal chest. No change.
[2021-05-06 05:11] LABS: Anisocytosis Moderate; Basophils % (A) 0 %; Eosinophils # (A) 0.1 k/uL (0-0.7); Eosinophils % (A) 1 %; HCT 41.3 % (34.0-46.0); HGB 12.7 gm/dL (11.4-16.0); Hypochromasia Slight; Lymphocytes # (A) 0.3 k/uL (1.0-4.8); Lymphocytes % (A) 4 %; MCH 23.9 pg (25.0-35.0); MCHC 30.7 g/dL (31.0-37.0); Mean Platelet Volume 8.3; Microcytosis Marked; Monocytes # (A) 0.4 k/uL (0-1.0); Monocytes % (A) 5 %; Neutrophils # (A) 7.4 k/uL (1.3-7.7); Neutrophils % (A) 90 %; Platelet Count 241 k/uL (150-450); RBC 5.29 m/uL (3.80-5.40); RDW 23.2 % (11.5-15.5); WBC 8.2 k/uL (3.8-10.6)
--- NOTE | 2021-05-06 05:12 | ED ---
URI HPI - General Chief Complaint: Upper Respiratory Infection Stated Complaint: Pain all over, migraine Time Seen by Provider: 05/06/21 04:28 Source: patient, RN notes reviewed, old records reviewed Mode of arrival: ambulatory Limitations: no limitations - History of Present Illness Initial Comments: This is a 40-year-old female to the emergency room today. Patient presents today for evaluation regards to not feeling well. She states she has been e xposed to coronavirus recently has not follow-up for about 5 days. Patient is vaccinated for over half ER. Patient states she has diffuse body aches pains cough congestion with multiple other similar complaints. No other complaints MD Complaint: fever, cough Severity: severe Severity scale (1-10): 8 Quality: sharp Consistency: constant Improves With: nothing Worsens With: nothing Context: sick contacts (Positive coronavirus exposure) Associated Symptoms: chills, myalgias, cough, chest pain, shortness of breath, nausea Treatments Prior to Arrival: none - Related Data Home Medications Medication Instructions Recorded Confirmed Gabapentin [Neurontin] 300 mg PO HS PRN 03/29/20 03/17/21 Albuterol Inhaler [Ventolin Hfa 1 puff INHALATION RT-QID PRN 04/01/20 03/17/21 Inhaler] Budesonide/Formoterol Fumarate 2 puff INHALATION RT-BID 07/20/20 03/17/21 [Symbicort 160-4.5 Mcg Inhaler] Cetirizine HCl [Zyrtec] 10 mg PO DAILY 12/06/20 03/17/21 DULoxetine HCL [Cymbalta] 120 mg PO DAILY 12/06/20 03/17/21 Fluticasone Nasal [place] [Flonase 2 spr EA NOSTRIL DAILY 12/06/20 03/17/21 Nasal [place]] Montelukast [Singulair] 10 mg PO HS 12/06/20 03/17/21 busPIRone HCl [Buspar] 10 mg PO BID 12/06/20 03/17/21 rOPINIRole HCL [Requip] 0.5 mg PO HS 12/06/20 03/17/21 Previous Rx's Medication Instructions Recorded traZODone HCL [Desyrel] 50 mg PO HS 30 Days #30 tab 07/26/20 Ibuprofen [Motrin] 600 mg PO Q6HR PRN #30 tab 12/07/20 Allergies Allergy/AdvReac Type Severity Reaction Status Date / Time sulfamethoxazole Allergy Rash/Hives Verified 05/06/21 04:28 [From Bactrim] Surgical Tape Allergy Rash/Hives Uncoded 05/06/21 04:28 Review of Systems ROS Statement: Those systems with pertinent positive or pertinent negative responses have been documented in the HPI. ROS Other: All systems not noted in ROS Statement are negative. Past Medical History Past Medical History: Asthma, Deep Vein Thrombosis (DVT), GERD/Reflux Additional Past Medical History / Comment(s): Hx. pinched nerve in right leg. Hx DVT in right leg with 2nd . Migraines. restless leg, heavy frequent per iods History of Any Multi-Drug Resistant Organisms: None Reported Past Surgical History: Appendectomy, Section, Cholecystectomy, Orthopedic Surgery Additional Past Surgical History / Comment(s): Arthroscopy bilateral knees, Section X3. Past Anesthesia/Blood Transfusion Reactions: No Reported Reaction Past Psychological History: Anxiety, Depression Smoking Status: Current every day smoker Past Alcohol Use History: Occasional Past Drug Use History: None Reported - Past Family History Mother Family Medical History: CVA/TIA Additional Family Medical History / Comment(s): "Breast tumors, blood clots that caused multiple strokes." Father Family Medical History: Unable to Obtain Additional Family Medical History / Comment(s): Pt unaware of father's health history. General Exam Limitations: no limitations General appearance: alert, in no apparent distress Head exam: Present: atraumatic, normocephalic, normal inspection Eye exam: Present: normal appearance, PERRL, EOMI. Absent: scleral icterus, conjunctival injection, periorbital swelling ENT exam: Present: normal exam, mucous membranes moist Neck exam: Present: normal inspection. Absent: tenderness, meningismus, lymph adenopathy Respiratory exam: Present: normal lung sounds bilaterally. Absent: respiratory distress, wheezes, rales, rhonchi, stridor Cardiovascular Exam: Present: normal rhythm, tachycardia, normal heart sounds. Absent: systolic murmur, diastolic murmur, rubs, gallop, clicks GI/Abdominal exam: Present: soft, normal bowel sounds. Absent: distended, tenderness, guarding, rebound, rigid Extremities exam: Present: normal inspection, full ROM, normal capillary refill. Absent: tenderness, pedal edema, joint swelling, calf tenderness Back exam: Present: normal inspection Neurological exam: Present: alert, oriented X3, CN II-XII intact Psychiatric exam: Present: normal affect, normal mood Skin exam: Present: warm, dry, intact, normal color. Absent: rash Course Vital Signs 05/06/21 04:23 Temperature 99.3 F Pulse Rate 122 H Respiratory 22 Rate Blood Pressure 121/86 O2 Sat by Pulse 96 Oximetry - Reevaluation(s) Reevaluation #1: 05/06/21 05:40 Medical record is reviewed Reevaluation #2: 05/06/21 05:40 Patient is informed of results and questions answered Reevaluation #3: 05/06/21 05:40 Patient feels significantly improved, no need for current treatment and can be discharged home Medical Decision Making - Medical Decision Making 40 female to the emergency department for evaluation of acute aches and pains. Positive coronavirus. At this time patient can be discharged home - Lab Data Result diagrams: 05/06/21 05:00 05/06/21 05:02 Lab Results 05/06/21 05/06/21 05/06/21 Range/Units 04:22 05:00 05:02 WBC 8.2 (3.8-10.6) k/uL RBC 5.29 (3.80-5.40) m/uL Hgb 12.7 (11.4-16.0) gm/dL Hct 41.3 (34.0-46.0) % MCV 78.0 L (80.0-100.0) fL MCH 23.9 L (25.0-35.0) pg MCHC 30.7 L (31.0-37.0) g/dL RDW 23.2 H (11.5-15.5) % Plt Count 241 (150-450) k/uL MPV 8.3 Neutrophils % 90 % Lymphocytes % 4 % Monocytes % 5 % Eosinophils % 1 % Basophils % 0 % Neutrophils # 7.4 (1.3-7.7) k/uL Lymphocytes # 0.3 L (1.0-4.8) k/uL Monocytes # 0.4 (0-1.0) k/uL Eosinophils # 0.1 (0-0.7) k/uL Basophils # 0.0 (0-0.2) k/uL Hypochromasia Slight Anisocytosis Moderate Microcytosis Marked Sodium 133 L (137-145) mmol/L Potassium 4.4 (3.5-5.1) mmol/L Chloride 104 (98-107) mmol/L Carbon Dioxide 22 (22-30) mmol/L Anion Gap 7 mmol/L BUN 12 (7-17) mg/dL Creatinine 0.66 (0.52-1.04) mg/dL Est GFR (CKD-EPI)AfAm >90 (>60 ml/min/1.73 sqM) Est GFR (CKD-EPI)NonAf >90 (>60 ml/min/1.73 sqM) Glucose 103 H (74-99) mg/dL Calcium 9.4 (8.4-10.2) mg/dL Magnesium 1.6 (1.6-2.3) mg/dL Total Bilirubin 0.2 (0.2-1.3) mg/dL AST 31 (14-36) U/L ALT 31 (4-34) U/L Alkaline Phosphatase 102 (38-126) U/L Lactate Dehydrogenase 449 (313-618) U/L C-Reactive Protein 1.5 H (<1.0) mg/dL Total Protein 7.0 (6.3-8.2) g/dL Albumin 3.9 (3.5-5.0) g/dL Coronavirus (PCR) Detected A (Not Detectd) - EKG Data -: EKG Interpreted by Me (EKG shows sinus tachycardia 107 AK 142 QRS 92 QTC 435) - Radiology Data Radiology results: report reviewed (Chest x-rays negative for acute disease), image reviewed Disposition Clinical Impression: Coronavirus infection, COVID-19 Disposition: HOME SELF-CARE Condition: Good Instructions (If sedation given, give patient instructions): Coronavirus Disease 2019 (COVID-19) Is patient prescribed a controlled substance at d/c from ED?: No Referrals: Hemant Valdovinos MD [Primary Care Provider] - 1-2 days
[2021-05-06 05:25] LABS: ALT 31 U/L (4-34); AST 31 U/L (14-36); African American GFR (CKD) >90 (>60 ml/min/1.73 sqM); Albumin 3.9 g/dL (3.5-5.0); Alkaline Phosphatase 102 U/L (38-126); Anion Gap 7 mmol/L; Blood Urea Nitrogen 12 mg/dL (7-17); C Reactive Protein 1.5 mg/dL (<1.0); Calcium 9.4 mg/dL (8.4-10.2); Carbon Dioxide 22 mmol/L (22-30); Chloride 104 mmol/L (98-107); Glucose 103 mg/dL (74-99); LDH 449 U/L (313-618); Magnesium 1.6 mg/dL (1.6-2.3); Non-African American GFR(CKD) >90 (>60 ml/min/1.73 sqM); Potassium 4.4 mmol/L (3.5-5.1); Sodium 133 mmol/L (137-145); Total Bilirubin 0.2 mg/dL (0.2-1.3)
[2021-05-06] MEDS ORDERED: IBUPROFEN 600 MG STARTER PACK 4 TAB BTL PO STA (05:57)
[2021-05-06] MEDS ORDERED: ONDANSETRON 4 MG ODT STARTER PACK 2 TAB BTL PO STA (05:57)
[2021-05-06] MEDS ORDERED: ACET/COD 300 MG/30 MG STARTER PACK 6 TAB BTL PO STA (05:57)
[2021-05-06] MEDS ORDERED: SODIUM CHLORIDE 0.9% 50 ML IVPB ONE (06:15)
[2021-05-06] MEDS ORDERED: CASIRIVIMAB (REGN10933) (EUA) 600 MG, IMDEVIMAB (REGN10987) (EUA) 600 MG in SODIUM CHLO... IVPB ONE (06:30)
[2021-05-06 08:31] VITALS: BP 127/76; PULSE 92; RESP 18; TEMP 98.2
== END 2021-05-06 08:43 | disposition home or self-care (01) ==
LOC: EC 04:21
DX: U07.1 COVID-19 (principal); J45.909 Unspecified asthma, uncomplicated; K21.9 Gastro-esophageal reflux disease without esophagitis; F41.9 Anxiety disorder, unspecified; F32.A Depression, unspecified; F17.200 Nicotine dependence, unspecified, uncomplicated; Z86.718 Personal history of other venous thrombosis and embolism; Z88.2 Allergy status to sulfonamides; Z90.49 Acquired absence of other specified parts of digestive tract
CPT/HCPCS: 99285; 96374; 96375; 96361 ×4; 36415; 93005; 80053; 83615; 83735; 85025; 86140; 87635; 71045; U0003; U0005; J1100; J1885; S0119; Q0243

== ENCOUNTER → 2022-10-04 | Outpatient (CLI) | payer OTHER ==
--- NOTE | 2022-10-05 19:59 | MM ---
Reason for Exam: Screening (asymptomatic). Baseline mammogram. Patient History: Menarche at age 12. First Full-Term at age 19. Patient has history of breast feeding. Last menstrual period: 09/20/2022 Risk Values: Denae 5 year model risk: 0.5%. NCI Lifetime model risk: 8.0%. Prior Study Comparison: Patient's first Mammogram. Tissue Density: There are scattered fibroglandular densities. Findings: Analyzed By CAD. No significant mass, suspicious microcalcification, or other discrete abnormality is seen. Overall Assessment: Negative, BI-RAD 1 Management: Screening Mammogram of both breasts in 1 year. 1. Patient should continue monthly self breast exams. 2. A clinical breast exam by your physician is recommended on an annual basis. 3. This exam should not preclude additional follow-up of suspicious palpable abnormalities. Electronically signed and approved by: Tyson Platt M.D. Radiologist
== END | disposition home or self-care (01) ==
LOC: RADMAMWWP 15:15
PROVIDERS: ATTEND Pediatrics
DX: Z12.31 Encounter for screening mammogram for malignant neoplasm of breast (principal)
CPT/HCPCS: 77067

== ENCOUNTER 2024-06-03 15:22 | Emergency (ER) | payer OTHER ==
[2024-06-03 15:38] VITALS: RESP 18; TEMP 97.6
--- NOTE | 2024-06-03 17:08 | CT ---
EXAMINATION TYPE: CT abdomen pelvis wo con DATE OF EXAM: 06/03/2024 5:01 PM COMPARISON: None. CLINICAL INDICATION: Female, 44 years old with history of flank pain; Rt side flank pain x3wks. TECHNIQUE: Axial CT abdomen pelvis wo con;Sagittal and coronal reformats were created on a separate workstation. Oral contrast used: without Oral Contrast CT DLP: 2022.4 mGycm, Automated exposure control for dose reduction was used. FINDINGS: LOWER CHEST: Unremarkable ABDOMEN LIVER: Diffusely hypoattenuating parenchyma. GALLBLADDER AND BILE DUCTS: The gallbladder is surgically absent. PANCREAS: Unremarkable. SPLEEN: Unremarkable. ADRENAL GLANDS: Mild benign adenomatous nodular thickening of the left adrenal gland. Right adrenal g land unremarkable.. KIDNEYS AND URETERS: No evidence of hydronephrosis or renal calculus. The ureters are unremarkable. PELVIS BLADDER: No evidence for wall thickening or mass given limitations of exam. REPRODUCTIVE: Uterus unremarkable. Bilateral metallic adnexal clips. ABDOMEN & PELVIS STOMACH AND BOWEL: Stomach and duodenum are unremarkable No evidence of bowel obstruction. PERITONEUM/RETROPERITONEUM: No evidence of pneumoperitoneum or free fluid. Small hiatal hernia. VASCULATURE: No evidence of aortic aneurysm. MUSCULOSKELETAL: No acute osseous abnormalities LYMPH NODES: No gross evidence for lymphadenopathy. SOFT TISSUE/ABDOMINAL WALL: Unremarkable IMPRESSION: 1. No acute abnormality in the abdomen/pelvis or CT findings to explain reported symptoms. 2. Hepatic steatosis. 3. Small hiatal hernia. [facility], , 06/03/2024 5:06 PM
[2024-06-03 17:47] LABS: Appearance,Urine Clear (Clear); Bilirubin,Urine Negative (Negative); Blood,Urine Negative (Negative); Color,Urine Yellow; Glucose,Urine (UA) Negative (Negative); Ketones,Urine 1+ (Negative); Leukocyte Esterase,Urine Negative (Negative); Nitrite,Urine Negative (Negative); PH, Urine 5.5 (5.0-8.0); Protein,Urine Trace (Negative)
--- NOTE | 2024-06-03 18:11 | ED ---
Back Pain HPI - General Chief Complaint: Back Pain/Injury Stated Complaint: Abd pain Time Seen by Provider: 06/03/24 15:41 Source: patient, RN notes reviewed Limitations: no limitations - History of Present Illness Initial Comments: Was pt. sent in by a medical professional or institution (, [facility], OPTICAL MANAGER, urgent care, hospital, or half-way...) When possible be specific @ -No Did you speak to anyone other than the patient for history (EMS, parent, family, police, friend...)? What history was obtained from this source @ -No Did you review nursing and triage notes (agree or disagree)? Why? @ -I reviewed and agree with nursing and triage notes Were old charts reviewed (outside hosp., previous admission, EMS record, old EKG, old radiological studies, urgent care reports/EKG's, half-way records)? Report findings @ -No old charts were reviewed Differential Diagnosis (chest pain, altered mental status, abdominal pain women, abdominal pain men, vaginal bleeding, weakness, fever, dyspnea, syncope, headache, dizziness, GI bleed, back pain, seizure, CVA, palpatations, mental health, musculoskeletal)? @ -Differential Abdominal Pain Men: Appendicitis, cholecystitis, diverticulosis, ischemic bowel, pancreatitis, hepatitis, UTI, gastroenteritis, AAA, incarcerated hernia, bowel obstruction, constipation, inflammatory bowel, hepatitis, peptic ulcer disease, splenic in farction, perforated viscus, testicular torsion, this is not meant to be an all- inclusive list EKG interpreted by me (3pts min.). @ -None X-rays interpreted by me (1pt min.). @ -None done CT interpreted by me (1pt min.). @ -CT abdomen pelvis showing no acute intra-abdominal process U/S interpreted by me (1pt. min.). @ -None done What testing was considered but not performed or refused? (CT, X-rays, U/S, labs)? Why? @ -None What meds were considered but not given or refused? Why? @ -None Did you discuss the management of the patient with other professionals (professionals i.e. JOS[facility] MIGUEL Smith, OPTICAL MANAGER, lab, RT, psych nurse, social media director, regulatory compliance officer, teacher, environmental conservation officer, manager of case)? Give summary @ -No Was smoking cessation discussed for >3mins.? @ -No Was critical care preformed (if so, how long)? @ -No Were there social determinants of health that impacted care today? How? (Homelessness, low income, unemployed, alcoholism, drug addiction, transportation, low edu. Level, literacy, decrease access to med. care, nursing home, rehab)? @ -No Was there de-escalation of care discussed even if they declined (Discuss DNR or withdrawal of care, Hospice)? DNR status @ -No What co-morbidities impacted this encounter? (DM, HTN, Smoking, COPD, CAD, Cancer, CVA, ARF, Chemo, Hep., AIDS, mental health diagnosis, sleep apnea, morbid obesity)? @ -None Was patient admitted / discharged? Hospital course, mention meds given and route, prescriptions, significant lab abnormalities, going to OR and other pertinent info. @ -Charge patient urinalysis and CT unremarkable. Patient has most counseled back pain patient discharged in stable condition patient has no red flag symptoms return parameters discussed. Undiagnosed new problem with uncertain prognosis? @ -No Drug Therapy requiring intensive monitoring for toxicity (Heparin, Nitro, Insulin, Cardizem)? @ -No Were any procedures done? @ -No Diagnosis/symptom? @ -Back pain Acute, or Chronic, or Acute on Chronic? @ -Acute Uncomplicated (without systemic symptoms) or Complicated (systemic symptoms)? @ -Uncomplicated Side effects of treatment? @ -No Exacerbation, Progression, or Severe Exacerbation? @ -No Poses a threat to life or bodily function? How? (Chest pain, [place], [place], pneumonia, PE, COPD, DKA, ARF, appy, cholecystitis, CVA, Diverticulitis, Homicidal, Suicidal, threat to staff... and all critical care pts) @ -No - Related Data Home Medications Medication Instructions Recorded Confirmed Gabapentin [Neurontin] 300 mg PO HS PRN 03/29/20 07/24/21 Albuterol Inhaler [Ventolin Hfa 2 puff INHALATION RT-QID PRN 04/01/20 07/24/21 Inhaler] Budesonide/Formoterol Fumarate 2 puff INHALATION RT-BID 07/20/20 07/24/21 [Symbicort 160-4.5 Mcg Inhaler] Cetirizine HCl [Zyrtec] 10 mg PO DAILY 12/06/20 07/24/21 Montelukast [Singulair] 10 mg PO HS 12/06/20 07/24/21 busPIRone HCl [Buspar] 10 mg PO TID PRN 12/06/20 07/24/21 DULoxetine HCL [Cymbalta] 120 mg PO DAILY 07/24/21 07/24/21 Ergocalciferol (Vitamin D2) 1,250 mcg PO Q7D 07/24/21 07/24/21 [Drisdol (50,000 Iu)] Multivitamins, Thera [Multivitamin 1 tab PO DAILY 07/24/21 07/24/21 (formulary)] rOPINIRole HCL [Requip] 1 mg PO HS 07/24/21 07/24/21 Previous Rx's Medication Instructions Recorded traZODone HCL [Desyrel] 50 mg PO HS 30 Days #30 tab 07/26/20 Ibuprofen [Motrin] 600 mg PO Q8HR PRN #30 tab 07/24/21 traMADol HCl [Ultram] 50 mg PO Q6H PRN #20 tab 07/24/21 Allergies Allergy/AdvReac Type Severity Reaction Status Date / Time sulfamethoxazole Allergy Rash/Hives Verified 06/03/24 15:37 [From Bactrim] Surgical Tape Allergy Rash/Hives Uncoded 06/03/24 15:37 Review of Systems ROS Statement: Those systems with pertinent positive or pertinent negative responses have been documented in the HPI. ROS Other: All systems not noted in ROS Statement are negative. Past Medical History Past Medical History: Asthma, Deep Vein Thrombosis (DVT), GERD/Reflux Additional Past Medical History / Comment(s): Hx. pinched nerve in right leg. Hx DVT in right leg with 2nd . Migraines. restless leg, heavy frequent periods History of Any Multi-Drug Resistant Organisms: None Reported Past Surgical History: Appendectomy, Section, Cholecystectomy, Orthopedic Surgery Additional Past Surgical History / Comment(s): Arthroscopy bilateral knees, Section X3. Past Anesthesia/Blood Transfusion Reactions: No Reported Reaction Past Psychological History: Anxiety, Depression Smoking Status: Current every day smoker Past Alcohol Use History: Occasional Past Drug Use History: None Reported - Past Family History Mother Family Medical History: CVA/TIA Additional Family Medical History / Comment(s): "Breast tumors, blood clots that caused multiple strokes." Father Family Medical History: Unable to Obtain Additional Family Medical History / Comment(s): Pt unaware of father's health history. General Exam Limitations: no limitations Course Vital Signs 06/03/24 15:33 Temperature 97.6 F Pulse Rate 91 Respiratory 18 Rate Blood Pressure 144/94 O2 Sat by Pulse 97 Oximetry Medical Decision Making - Lab Data Lab Results 06/03/24 Range/Units 17:43 Urine Color Yellow Urine Appearance Clear (Clear) Urine pH 5.5 (5.0-8.0) Ur Specific [place] 1.030 (1.001-1.035) Urine Protein Trace H (Negative) Urine Glucose (UA) Negative (Negative) Urine Ketones 1+ H (Negative) Urine Blood Negative (Negative) Urine Nitrite Negative (Negative) Urine Bilirubin Negative (Negative) Urine Urobilinogen 2.0 (<2.0) mg/dL Ur Leukocyte Esterase Negative (Negative) Disposition Clinical Impression: Back pain Disposition: HOME SELF-CARE Condition: Stable Instructions (If sedation given, give patient instructions): Back Pain (ED) Additional Instructions: Please return to the Emergency Department if symptoms worsen or any other concerns. Is patient prescribed a controlled substance at d/c from ED?: No Referrals: Hemant Valdovinos MD [Primary Care Provider] - 1-2 days Time of Disposition: 18:11
[2024-06-03] MEDS: KETOROLAC 15 MG/ML 1 ML VIAL IM STA (18:14)
[2024-06-03] MEDS: CEPHALEXIN 500MG STARTER PACK 4 CAP BTL PO STA (18:17)
[2024-06-03] MEDS: ACET/COD 300 MG/30 MG STARTER PACK 6 TAB BTL PO STA (18:17)
[2024-06-03 18:26] VITALS: BP 123/85; PULSE 75
== END 2024-06-03 18:26 | disposition home or self-care (01) ==
LOC: EC 15:22
DX: M54.9 Dorsalgia, unspecified (principal); F17.200 Nicotine dependence, unspecified, uncomplicated; Z88.2 Allergy status to sulfonamides; Z88.8 Allergy status to other drugs, medicaments and biological substances
CPT/HCPCS: 81003; 74176; 99284; 96372; J1885